=== PATIENT | female | born 1950 | race African-American/Black ===

== ENCOUNTER 2017-04-14 03:34 | Emergency (ER) | payer MEDICARE, MEDICAID ==
[2017-04-14] MEDS ORDERED: Lidocaine 1% w/Epinephrine 1:200K 30 ML VIAL ONE (03:46)
[2017-04-14] MEDS ORDERED: Acetaminophen 500 MG TAB ONE (04:54)
[2017-04-14] MEDS ORDERED: Adacel (T-DAP) 0.5 ML VIAL ONE (04:54)
[2017-04-14] MEDS ORDERED: Bacitracin Zinc 1 Packet ONE (05:03)
--- NOTE | 2017-04-14 07:55 | RAD ---
3 VIEWS RIGHT FOOT: Date: 04/14/17 COMPARISON: None. HISTORY: Fell out of bed, right foot pain. FINDINGS: Three views of the right foot show no evidence of acute fracture or dislocation. Mild degenerative c hanges are seen in the great toe metatarsophalangeal joint. No soft tissue swelling is seen. IMPRESSION: No evidence of acute osseous abnormality. POS: [facility]
--- NOTE | 2017-04-14 08:09 | CT ---
PRELIMINARY REPORT/[facility]/EMERGENCY AFTER HOURS PROCEDURE: EXAM: CT Head Without Intravenous Contrast CLINICAL HISTORY: 66 years old, female; Injury or trauma; Fall; Initial encounter; Abrasion; Eye; Left; Patient HX: Er 8; F 66 presents to ed following fall out of bed. Pt states that she was sleeping when she rolled o ut of bed and hit her head and got a cut above her left eyebrow, bleeding was controlled. TECHNIQUE: Axial computed tomography images of the head/brain without intravenous contrast. COMPARISON: No relevant prior studies available. FINDINGS: Brain: There is no evidence for acute stroke or bleed. There are scattered foci of decreased attenuation in the periventricular and subcortical white matter, nonspecific, but most consistent with chronic sma ll vessel ischemic changes in patient of this age. There are benign, bilateral senescent basal gangl ion calcifications. Ventricles / cisterns / extra-axial spaces: There is no hydrocephalus, midline shift, or acute extra-axial fluid collection. There is no sulcal effacement. Sinuses: No findings of acute sinusitis or suspicious sinus mass. Bone: No acute fracture or displacement. Impression: Chronic changes without evidence for acute, intracranial pathology. Thank you for allowing us to participate in the care of your patient. Dictated and Authenticated by: Dheeraj Corbin MD 04/14/2017 4:31 AM Central Time ([place] \T\ Krish) FINAL REPORT CT BRAIN WITHOUT CONTRAST: I agree with the preliminary report given by Dr. Dheeraj Corbin of [facility]. Comparison is made with the exam of 03/02/17. No CT evidence of acute intracranial process is identified. POS: [facility]
== END 2017-04-14 05:09 | disposition home or self-care (01) ==
LOC: ERS 03:34
DX: S01.81XA Laceration without foreign body of other part of head, initial encounter (principal); E78.5 Hyperlipidemia, unspecified; I10 Essential (primary) hypertension; K21.9 Gastro-esophageal reflux disease without esophagitis; D64.9 Anemia, unspecified; M81.0 Age-related osteoporosis without current pathological fracture; Z79.899 Other long term (current) drug therapy; W06.XXXA Fall from bed, initial encounter
CPT/HCPCS: 12011; 70450; 90471; 90715

== ENCOUNTER 2017-04-28 14:03 | Emergency (ER) | payer MEDICARE, OTHER ==
[2017-04-28 14:23] LABS: #Eosinphils 0.1 thou/uL (0.0-0.7); #Lymphocytes 1.2 thou/uL (1.20-3.40); #Monocytes 0.3 thou/uL (0.11-0.59); #Neutrophils 3.2 thou/uL (1.40-6.50); %Basophils 0.7 % (0.0-1.0); %Eosinophils 1.3 % (0.0-10.0); %Lymphocytes 26.1 % (21.0-51.0); %Monocytes 5.4 % (0.0-10.0); Hematocrit 41.6 % (36.0-47.0); Mean Platelet Volume 8.8 fL (7.4-10.4); Red Blood Cell (RBC) Count 4.13 mill/uL (4.20-5.40); White Blood Cell (WBC) Count 4.8 thou/uL (4.8-10.8)
[2017-04-28] MEDS ORDERED: ISOVUE-370 76%-LOCM 1 ML ONE (14:31)
[2017-04-28 14:46] LABS: ALT (SGPT) 48 U/L (8-55); AST (SGOT) 86 U/L (5-34); Alkaline Phosphatase 142 U/L (40-150); Anion Gap 11 mmol/L (10-20); BUN (Urea Nitrogen) 16 mg/dL (9.8-20.1); Bilirubin, Total 1.3 mg/dL (0.2-1.2); Calc. Creatinine Clearance 0 mL/min (70-130); Calcium 9.5 mg/dL (7.8-10.44); Carbon Dioxide 27 mmol/L (23-31); Chloride 100 mmol/L (98-107); Estimated GFR-MDRD 62; Globulin 4.2 g/dL (2.4-3.5); Protein, Total 7.9 g/dL (6.0-8.3)
[2017-04-28 14:53] LABS: PTT 32.5 SEC (22.9-36.1); Prothrombin Time 14.6 SEC (12.0-14.7)
[2017-04-28 15:05] LABS: Magnesium 2.1 mg/dL (1.6-2.6)
[2017-04-28 15:10] LABS: Troponin I 0.013 ng/mL (< 0.028)
[2017-04-28 15:11] LABS: Bilirubin Negative (Negative); Blood, Urine Negative (Negative); Glucose, Urine (Dipstick) 250 mg/dL (Negative); Ketone, Urine Negative (Negative); Nitrite Negative (Negative); Protein, Urine (Dipstick) Negative (Neg-Trace)
--- NOTE | 2017-04-28 15:28 | CT ---
CT BRAIN: HISTORY: Weakness, dizziness. DATE: 04/28/17. COMPARISON: Comparison is made to previous exam from 04/14/17. FINDINGS: Noncontrast-enhanced CT images of the brain demonstrate the brain to be unremarkable. No evidence o f intracranial masses, hemorrhages, strokes, or contusions seen. Ventricles are of normal size. IMPRESSION: Normal CT brain. No significant interval change is seen since the previous exam from approximately 14 days earlier. POS: [facility]
[2017-04-28] MEDS ORDERED: Ondansetron HCl/PF 4 MG/2 ML Vial ONE (15:45)
--- NOTE | 2017-04-28 16:00 | CT ---
CONTRAST ENHANCED CT IMAGES ABDOMEN AND PELVIS: 04/28/17 HISTORY: Dizziness, weakness, abdominal pain. Contrast enhanced CT images of the abdomen and pelvis is obtained. Unfortunately oral contrast was n ot given. Without oral contrast, there is decreased sensitivity for detection of abdominal pathology . The lung bases are unremarkable. Nodularity and cirrhotic changes of the liver again seen. Extensive gastric surgical christopher are seen. Left upper quadrant splenic varicosities seen. There appears to be some thickening of some of the small bowel loops concerning for possible enteritis. It is difficu lt to rule out GI pathology without benefit of oral contrast. A large amount of stool was seen in the colon. This patient appears to have extensive amounts of ret ained stool. No definite evidence of periaortic lymphadenopathy seen. IMPRESSION: 1. Suboptimal exam due to the fact that oral contrast was not given. 2. Distal esophageal thickening. 3. Perisplenic left upper quadrant varicosities. 4. Hepatic nodularity and possible changes of cirrhosis. POS: [facility]
== END 2017-04-28 18:12 | disposition short-term general hospital (02) ==
LOC: ERS 14:03
DX: K85.90 Acute pancreatitis without necrosis or infection, unspecified (principal); K74.60 Unspecified cirrhosis of liver; D86.0 Sarcoidosis of lung; E78.5 Hyperlipidemia, unspecified; I10 Essential (primary) hypertension; K21.9 Gastro-esophageal reflux disease without esophagitis; Z79.899 Other long term (current) drug therapy
CPT/HCPCS: 36415; 51701; 70450; 74177; 80053; 81003; 82553; 83605; 83690; 83735; 84484; 85025; 85610; 85730; 87040; 87086; 93005; 96361; 96374; J2405

== ENCOUNTER 2017-06-02 21:11 | Emergency (ER) | payer MEDICARE, MEDICAID ==
[~2017-06-02 21:11] MED LIST: ISOVUE-370 76%-LOCM 1 ML ONE
[2017-06-02 21:55] LABS: #Basophils 0.1 thou/uL (0.0-0.2); #Eosinphils 0.1 thou/uL (0.0-0.7); #Monocytes 0.4 thou/uL (0.11-0.59); #Neutrophils 3.3 thou/uL (1.40-6.50); %Basophils 1.2 % (0.0-1.0); %Eosinophils 2.1 % (0.0-10.0); %Lymphocytes 33.8 % (21.0-51.0); %Monocytes 6.4 % (0.0-10.0); Hematocrit 41.1 % (36.0-47.0); Mean Platelet Volume 9.3 fL (7.4-10.4); Red Blood Cell (RBC) Count 4.15 mill/uL (4.20-5.40); White Blood Cell (WBC) Count 5.8 thou/uL (4.8-10.8)
[2017-06-02 22:01] LABS: PTT 29.3 SEC (22.9-36.1)
[2017-06-02 22:02] LABS: ALT (SGPT) 38 U/L (8-55); AST (SGOT) 83 U/L (5-34); Alkaline Phosphatase 144 U/L (40-150); Anion Gap 16 mmol/L (10-20); BUN (Urea Nitrogen) 22 mg/dL (9.8-20.1); Bilirubin, Total 1.5 mg/dL (0.2-1.2); Calc. Creatinine Clearance 0 mL/min (70-130); Calcium 9.5 mg/dL (7.8-10.44); Carbon Dioxide 30 mmol/L (23-31); Chloride 91 mmol/L (98-107); Estimated GFR-MDRD 60; Globulin 3.9 g/dL (2.4-3.5); Lipase 138 U/L (8-78); Protein, Total 7.8 g/dL (6.0-8.3)
[2017-06-02 22:31] LABS: Bilirubin Negative (Negative); Blood, Urine Negative (Negative); Glucose, Urine (Dipstick) Negative (Negative); Ketone, Urine Negative (Negative); Nitrite Negative (Negative); Protein, Urine (Dipstick) Negative (Neg-Trace)
--- NOTE | 2017-06-02 22:34 | CT ---
CT ABDOMEN AND PELVIS WITH IV CONTRAST 06/02/17 HISTORY: Abdominal pain. Bloating. COMPARISON: 04/28/17. FINDINGS: Emphysematous changes at the lung bases are again demonstrated. There is a large nodular contour of t he liver and abdominal varices are similar in appearance to the previous exam. Cyst arising from the cortex of the left kidney is stable. There is calcification in the arterial structures. Urinary bladd er is incompletely distended. Lack of oral contrast limits evaluation of the bowel. There is no evidence of obstruction. Large amou nt of stool is present throughout the colon. Postoperative changes of the stomach and bowel are again demonstrated. IMPRESSION: 1. Abnormal appearance of the liver and abdominal varices appear stable. 2. Constipation. 3. Atherosclerosis. 4. Postoperative changes of the abdomen appears stable. POS: [facility]
[2017-06-02] MEDS ORDERED: Ondansetron HCl/PF 4 MG/2 ML Vial ONE (23:11)
[2017-06-02] MEDS ORDERED: Fentanyl 100 MCG/2 ML VIAL ONE (23:12)
== END 2017-06-03 00:19 | disposition home or self-care (01) ==
LOC: ERS 21:11
DX: R11.2 Nausea with vomiting, unspecified (principal); R10.13 Epigastric pain; E78.5 Hyperlipidemia, unspecified; I10 Essential (primary) hypertension; K21.9 Gastro-esophageal reflux disease without esophagitis; D64.9 Anemia, unspecified
CPT/HCPCS: 36415; 74177; 80053; 81003; 82274; 83690; 85025; 85610; 85730; 86850; 86900; 86901; 93005; 96361; 96374; 96375; J2405; J3010

== ENCOUNTER → 2017-06-07 | Day surgery (SDC) | payer MEDICARE, MEDICAID ==
[2017-06-06 10:51] VITALS: BMI 24.7
[~2017-06-07] MED LIST changes: -ISOVUE-370 76%-LOCM 1 ML ONE; +Lidocaine 1% PF 5 ML VIAL ONE; +Propofol 200 MG/20 ML VIAL ONE
--- NOTE | 2017-06-07 16:39 | OP ---
PREOPERATIVE DIAGNOSES: 1. History of cirrhosis and varices. 2. Chronic nausea. DESCRIPTION OF PROCEDURE: After informed consent was obtained, the patient was placed in the left la teral decubitus position. Anesthesia was administered per the Anesthesia Department. Forward-viewin g endoscope was inserted into the esophagus under direct visualization with ease and passed to the je junum with ease. The jejunum was normal. No abnormalities noted. The gastric pouch was normal. Th ere did seem to be some slight narrowing in transition between gastric pouch and jejunum. A 15 mm ba lloon was put across the area and inflated for 1 minute, deflated, and removed. No post-dilatation c hanges were noted. No ulcers are seen, grade II esophageal varices were noted without stigmata of re cent hemorrhage. No banding was performed. ASSESSMENT: 1. Grade II esophageal varices without stigmata of recent hemorrhage. 2. Status post gastric bypass. 3. Slight anastomotic narrowing - no change with balloon dilatation to 15 mm. RECOMMENDATIONS: 1. Continue Zofran. 2. Continue lactulose.
== END ==
LOC: SDC 11:28
PROVIDERS: ATTEND Internal Medicine Gastroenterology
PROC: 0D798ZZ Dilation of Duodenum, Via Natural or Artificial Opening Endoscopic (ICD-10-PCS; principal; 2017-06-07)
DX: I85.00 Esophageal varices without bleeding (principal); D86.89 Sarcoidosis of other sites; I10 Essential (primary) hypertension; K21.9 Gastro-esophageal reflux disease without esophagitis; D64.9 Anemia, unspecified; M81.0 Age-related osteoporosis without current pathological fracture; H40.9 Unspecified glaucoma; K92.89 Other specified diseases of the digestive system; Z79.899 Other long term (current) drug therapy; Z88.5 Allergy status to narcotic agent; Z98.84 Bariatric surgery status; Z90.49 Acquired absence of other specified parts of digestive tract; Z98.890 Other specified postprocedural states
CPT/HCPCS: 36415; 84132; J2001; J2704

== ENCOUNTER 2017-06-20 11:02 | Emergency (ER) | payer MEDICARE, MEDICAID ==
[2017-06-20 11:33] LABS: #Lymphocytes 0.5 thou/uL (1.20-3.40); #Monocytes 0.3 thou/uL (0.11-0.59); #Neutrophils 1.9 thou/uL (1.40-6.50); %Basophils 1.1 % (0.0-1.0); %Eosinophils 1.5 % (0.0-10.0); %Lymphocytes 17.9 % (21.0-51.0); %Monocytes 10.8 % (0.0-10.0); Hematocrit 36.5 % (36.0-47.0); Mean Platelet Volume 8.2 fL (7.4-10.4); Red Blood Cell (RBC) Count 3.63 mill/uL (4.20-5.40); White Blood Cell (WBC) Count 2.8 thou/uL (4.8-10.8)
[2017-06-20 11:47] LABS: ALT (SGPT) 46 U/L (8-55); AST (SGOT) 82 U/L (5-34); Alkaline Phosphatase 115 U/L (40-150); Anion Gap 6 mmol/L (10-20); BUN (Urea Nitrogen) 12 mg/dL (9.8-20.1); Bilirubin, Total 1.6 mg/dL (0.2-1.2); Calc. Creatinine Clearance 0 mL/min (70-130); Calcium 8.8 mg/dL (7.8-10.44); Carbon Dioxide 29 mmol/L (23-31); Chloride 105 mmol/L (98-107); Estimated GFR-MDRD 83; Globulin 3.7 g/dL (2.4-3.5); Lipase 118 U/L (8-78); Protein, Total 7.1 g/dL (6.0-8.3)
[2017-06-20 12:16] LABS: Bilirubin Negative (Negative); Blood, Urine Negative (Negative); Glucose, Urine (Dipstick) Negative (Negative); Ketone, Urine Negative (Negative); Nitrite Negative (Negative); Protein, Urine (Dipstick) Negative (Neg-Trace)
[2017-06-20] MEDS ORDERED: Pantoprazole 40 MG VIAL ONE (13:17)
[2017-06-20] MEDS ORDERED: Mag-Al 1200 mg/1200 mg/30 ML UDCUP ONE (13:18)
[2017-06-20] MEDS ORDERED: Lidocaine Viscous Sol 2% 15 ml UD Cup ONE (13:18)
[2017-06-20 13:35] LABS: Troponin I 0.012 ng/mL (< 0.028)
--- NOTE | 2017-06-20 13:49 | RAD ---
PORTABLE CHEST 1 VIEW: Date: 06/20/17 Time: 1222 hours HISTORY: Chest pain, abdominal pain, diarrhea, nausea, and weakness. FINDINGS/IMPRESSION: Comparison made with exam of 11/19/16. The heart size is borderline. The aorta is tortuous. Parenchymal markings are again seen. No lobar co nsolidation, pneumothorax, pedro pulmonary edema, or large effusions are identified. There are postop changes in the upper abdomen. POS: [facility]
[2017-06-20] MEDS ORDERED: ISOVUE-370 76%-LOCM 1 ML ONE (13:56)
--- NOTE | 2017-06-20 15:11 | CT ---
CT ABDOMEN AND PELVIS WITH IV CONTRAST: Date: 06/20/17 HISTORY: Abdominal pain, nausea, diarrhea, and weakness. Epigastric pain. FINDINGS: Comparison made with exam of 06/02/17. Emphysematous changes in the lung bases are again seen. There is thickening of the distal esophageal wall. Nodularity and heterogeneity of the liver is redemonstrated, indicating cirrhosis. Low density lesion in the spleen is stable. Abdominal varices are again seen. Left renal cyst is stable. A small amount of perihepatic fluid has developed. No free air is seen. There are vascular calcifications wit hout evidence of aneurysmal dilatation of the abdominal aorta. Changes of cholecystectomy are again noted. Uterus is present. Postop changes in the stomach and jeff l are again seen. Evaluation of bowel loops is suboptimal due to absence of oral contrast. Tiny cysts in the right kidney are again seen. Pancreas and adrenal glands are unremarkable. There are degenera tive changes in the spine. IMPRESSION: Small amount of perihepatic fluid, new since 06/02/17, otherwise stable exam. POS: [facility]
== END 2017-06-20 16:36 | disposition home or self-care (01) ==
LOC: ERS 11:02
DX: K74.60 Unspecified cirrhosis of liver (principal); K21.9 Gastro-esophageal reflux disease without esophagitis; E78.5 Hyperlipidemia, unspecified; I10 Essential (primary) hypertension; M81.0 Age-related osteoporosis without current pathological fracture; D64.9 Anemia, unspecified
CPT/HCPCS: 36415; 71010; 74177; 80053; 81003; 82550; 82553; 83690; 84484; 85025; 93005; 96361; 96374; C9113

== ENCOUNTER 2017-12-06 10:03 | Emergency (ER) | payer MEDICARE, OTHER ==
[2017-12-06 10:48] LABS: #Eosinphils 0.1 thou/uL (0.0-0.7); #Lymphocytes 1.3 thou/uL (1.20-3.40); #Monocytes 0.3 thou/uL (0.11-0.59); #Neutrophils 1.5 thou/uL (1.40-6.50); %Basophils 0.4 % (0.0-1.0); %Eosinophils 2.3 % (0.0-10.0); %Lymphocytes 41.5 % (21.0-51.0); %Monocytes 7.9 % (0.0-10.0); %Neutrophils 47.8 % (42.0-75.0); Hemoglobin 11.6 g/dL (12.0-16.0); Mean Corpuscular HGB CONC 32.7 g/dL (32.0-36.0); Mean Corpuscular Hemoglobin 32.1 pg (27.0-31.0); Mean Corpuscular Volume 98.2 fl (81.0-99.0); Mean Platelet Volume 8.8 fL (7.4-10.4); Platelet Count 93 thou/uL (130-400); RBC Distribution Width 12.4 % (11.5-14.5); Red Blood Cell (RBC) Count 3.62 mill/uL (4.20-5.40); White Blood Cell (WBC) Count 3.2 thou/uL (4.8-10.8)
[2017-12-06 10:58] LABS: ALT (SGPT) 39 U/L (8-55); AST (SGOT) 60 U/L (5-34); Albumin 3.4 g/dL (3.4-4.8); Alkaline Phosphatase 108 U/L (40-150); Anion Gap 12 mmol/L (10-20); BUN (Urea Nitrogen) 9 mg/dL (9.8-20.1); CK (CPK) 170 U/L (29-168); Calc. Creatinine Clearance 0 mL/min (70-130); Calcium 8.6 mg/dL (7.8-10.44); Carbon Dioxide 25 mmol/L (23-31); Chloride 103 mmol/L (98-107); Estimated GFR-MDRD 77; Globulin 3.5 g/dL (2.4-3.5); Glucose 82 mg/dL (80-115); Potassium 3.5 mmol/L (3.5-5.1); Protein, Total 6.9 g/dL (6.0-8.3); Sodium 136 mmol/L (136-145)
[2017-12-06 11:04] LABS: CKMB 1.4 ng/mL (0-6.6); Troponin I Less than 0.010 ng/mL (< 0.028)
--- NOTE | 2017-12-06 11:09 | RAD ---
CHEST 1 VIEW: COMPARISON: 06/20/17. HISTORY: Shortness of breath. FINDINGS: Enlarged cardiac silhouette. The pulmonary vessels are within normal limits. There are patchy inter stitial and alveolar opacities. Stable calcified granulomas in the right lung. No pneumothorax or o sseous abnormalities. IMPRESSION: Interstitial and alveolar opacities due to infiltrate. POS: [facility]
[2017-12-06] MEDS ORDERED: Azithromycin 250 MG TAB ONE (11:46)
[2017-12-06] MEDS ORDERED: cefTRIAXone\\ROCEPHIN 1 GM VIAL ONE (11:46)
== END 2017-12-06 16:07 | disposition short-term general hospital (02) ==
LOC: ERS 10:03
DX: J18.9 Pneumonia, unspecified organism (principal); E78.5 Hyperlipidemia, unspecified; I10 Essential (primary) hypertension; K21.9 Gastro-esophageal reflux disease without esophagitis; M81.0 Age-related osteoporosis without current pathological fracture; Z79.899 Other long term (current) drug therapy
CPT/HCPCS: 36415; 71045; 80053; 82550; 82553; 83605; 83880; 84484; 85025; 87040; 93005; 96365; J0696

== ENCOUNTER 2018-01-03 10:44 | Outpatient (CLI) | payer MEDICARE, MEDICAID ==
--- NOTE | 2018-01-03 11:54 | RAD ---
FRONTAL AND LATERAL CHEST: Date: 01-03-18 Comparison: 10-15-16 History: Dyspnea. FINDINGS: Multiple post-operative clips are seen in the upper abdomen. There is no pneumothorax, pleural fluid, focal consolidation or alveolar edema. Diffuse increased linear interstitial density is noted throughout both lungs with pulmonary hyperinfl ation, chronic stable findings. No focal consolidation or alveolar edema. IMPRESSION: Diffuse interstitial prominence and pulmonary hyperinflation, stable. No lobar consolidation or alveo lar edema. No acute findings. POS: [facility]
== END 2018-01-03 10:45 | disposition home or self-care (01) ==
LOC: RAD 10:44
PROVIDERS: ATTEND Internal Medicine Critical Care Medicine
DX: R06.00 Dyspnea, unspecified (principal); J98.4 Other disorders of lung
CPT/HCPCS: 71046

== ENCOUNTER 2018-02-24 12:20 | Emergency (ER) | payer MEDICARE, MEDICAID ==
[2018-02-24 13:26] LABS: #Eosinphils 0.1 thou/uL (0.0-0.7); #Lymphocytes 0.9 thou/uL (1.20-3.40); #Monocytes 0.2 thou/uL (0.11-0.59); #Neutrophils 2.1 thou/uL (1.40-6.50); %Basophils 1.3 % (0.0-1.0); %Eosinophils 1.7 % (0.0-10.0); %Lymphocytes 27.2 % (21.0-51.0); %Monocytes 6.7 % (0.0-10.0); Hemoglobin 12.2 g/dL (12.0-16.0); Mean Corpuscular Hemoglobin 32.2 pg (27.0-31.0); Mean Corpuscular Volume 97.5 fL (78.0-98.0); Mean Platelet Volume 8.5 fL (7.4-10.4); Platelet Count 107 thou/uL (130-400); RBC Distribution Width 12.9 % (11.5-14.5); Red Blood Cell (RBC) Count 3.79 mill/uL (4.20-5.40); White Blood Cell (WBC) Count 3.3 thou/uL (4.8-10.8)
[2018-02-24 13:58] LABS: ALT (SGPT) 55 U/L (8-55); AST (SGOT) 74 U/L (5-34); Albumin 3.8 g/dL (3.4-4.8); Alkaline Phosphatase 150 U/L (40-150); Anion Gap 9 mmol/L (10-20); BUN (Urea Nitrogen) 12 mg/dL (9.8-20.1); Bilirubin, Total 1.2 mg/dL (0.2-1.2); Calc. Creatinine Clearance 0 mL/min (70-130); Carbon Dioxide 29 mmol/L (23-31); Chloride 102 mmol/L (98-107); Estimated GFR-MDRD 73; Globulin 3.9 g/dL (2.4-3.5); Lipase 125 U/L (8-78); Potassium 3.7 mmol/L (3.5-5.1); Protein, Total 7.7 g/dL (6.0-8.3); Sodium 136 mmol/L (136-145)
[2018-02-24 14:11] LABS: Glucose 53 mg/dL (80-115)
[2018-02-24 15:33] LABS: Bilirubin Negative (Negative); Blood, Urine Negative (Negative); Clarity CLEAR (Clear); Glucose, Urine (Dipstick) Negative (Negative); Leukocyte Negative (Negative); Nitrite Negative (Negative); Protein, Urine (Dipstick) Negative (Neg-Trace); Specific Gravity, Urine 1.007 (1.002-1.036); pH, Urine 7.5 (5.0-9.0)
[2018-02-24] MEDS ORDERED: diphenhydrAMINE 25 MG CAP ONE (16:05)
== END 2018-02-24 16:07 | disposition home or self-care (01) ==
LOC: ERS 12:20
DX: E16.2 Hypoglycemia, unspecified (principal); E78.5 Hyperlipidemia, unspecified; I10 Essential (primary) hypertension; K21.9 Gastro-esophageal reflux disease without esophagitis; D64.9 Anemia, unspecified; M81.0 Age-related osteoporosis without current pathological fracture; Z79.899 Other long term (current) drug therapy
CPT/HCPCS: 36415; 36416; 80053; 81003; 83690; 85025; 93005

== ENCOUNTER 2018-04-25 09:01 | Observation (INO) | payer MEDICARE, OTHER ==
[2018-04-25] MEDS ORDERED: ISOVUE-370 76%-LOCM 1 ML ONE (09:46)
[2018-04-25 09:53] LABS: ALT (SGPT) 39 U/L (8-55); AST (SGOT) 49 U/L (5-34); Albumin 3.5 g/dL (3.4-4.8); Alkaline Phosphatase 108 U/L (40-150); Anion Gap 12 mmol/L (10-20); BUN (Urea Nitrogen) 12 mg/dL (9.8-20.1); Bilirubin, Total 1.6 mg/dL (0.2-1.2); Calc. Creatinine Clearance 0 mL/min (70-130); Calcium 9.2 mg/dL (7.8-10.44); Carbon Dioxide 24 mmol/L (23-31); Chloride 106 mmol/L (98-107); Estimated GFR-MDRD 68; Globulin 3.4 g/dL (2.4-3.5); Glucose 91 mg/dL (80-115); Potassium 3.2 mmol/L (3.5-5.1); Protein, Total 6.9 g/dL (6.0-8.3); Sodium 139 mmol/L (136-145)
[2018-04-25 09:55] LABS: #Eosinphils 0.1 thou/uL (0.0-0.7); #Lymphocytes 0.9 thou/uL (1.20-3.40); #Monocytes 0.3 thou/uL (0.11-0.59); #Neutrophils 2.3 thou/uL (1.40-6.50); %Basophils 1.3 % (0.0-1.0); %Eosinophils 2.3 % (0.0-10.0); %Lymphocytes 25.4 % (21.0-51.0); %Monocytes 7.3 % (0.0-10.0); %Neutrophils 63.7 % (42.0-75.0); Hemoglobin 12.1 g/dL (12.0-16.0); Mean Corpuscular HGB CONC 32.1 g/dL (32.0-36.0); Mean Corpuscular Hemoglobin 31.2 pg (27.0-31.0); Mean Corpuscular Volume 97.3 fL (78.0-98.0); Mean Platelet Volume 9.3 fL (7.4-10.4); PLT Morphology Comment Appears Decreased; Platelet Count 105 thou/uL (130-400); RBC Distribution Width 13.1 % (11.5-14.5); Red Blood Cell (RBC) Count 3.87 mill/uL (4.20-5.40); White Blood Cell (WBC) Count 3.5 thou/uL (4.8-10.8)
[2018-04-25 10:01] LABS: CKMB 1.7 ng/mL (0-6.6); Troponin I Less than 0.010 ng/mL (< 0.028)
--- NOTE | 2018-04-25 10:06 | RAD ---
PORTABLE CHEST: Indication: Chest pain Comparison: 12-06-17 FINDINGS: Heart size upper normal. There is vascular congestion. Interstitial prominence is seen similar to tam or exam suggesting interstitial edema. There are numerous nodular calcifications overlying both breas ts suggesting soft tissue breast calcifications. No effusion. IMPRESSION: Mild cardiomegaly with vascular and interstitial congestion suggesting interstitial edema. Nodular ca lcifications are seen overlying both breasts, similar to the prior study. POS: [facility]
--- NOTE | 2018-04-25 11:22 | CT ---
CT ANGIOGRAM THORAX WITH IV CONTRAST AND 3D RECONSTRUCTIONS: 04/25/2018 HISTORY: Dyspnea. Chest pain and shortness of breath with onset of symptoms this morning, while walking. COMPARISON: 11/09/2013 FINDINGS: The ascending thoracic aorta is mildly ectatic, measuring 4 cm x 3.8 cm. The thoracic aorta is other aldridge normal in caliber without evidence of an aortic dissection. Vascular calcifications are seen in the thoracic aorta, as well as involving the coronary arteries. The heart is mildly enlarged. No filling defects are seen in the pulmonary arteries to suggest a pulmonary embolus. There appears to be a hiatal hernia with post surgical changes of the stomach. There is suggestion of mild thicken ing involving the most distal esophagus. Findings have not significantly changed from a study in 201 4. There is interstitial thickening within the lungs bilaterally, likely related to chronic interstitial fibrotic lung changes, which have progressed from the prior study in 2013. A superimposed acute int erstitial process is a possibility. No focal consolidation or pleural fluid is seen. Again noted are changes of cirrhosis, a lobulated contour of the liver, as well as heterogeneity. Mu ltiple surgical clips are seen in the upper abdomen, predominantly in the epigastric region and right upper quadrant. There are varices seen adjacent to the spleen, in the left upper quadrant. A low density lesion is again partially imaged within the superior pole, right kidney, which is diffi cult to characterize but, statistically, likely represents a cyst. Radiopaque tubing is seen within the left upper abdomen, including adjacent to the stomach. This was present on prior exam. There brandt s been no other interval change. IMPRESSION: 1. No CT evidence of a pulmonary embolus. 2. Cardiomegaly. 3. Increased interstitial opacities throughout the lungs bilaterally, which have progressed from the prior study. Findings may be related to progression in chronic interstitial fibrotic lung changes, but a superimposed more acute interstitial process/infectious process cannot be excluded. There is n o consolidation present or pleural effusion identified. 4. Vascular calcifications. 5. Cirrhosis with varices in the upper abdomen. 6. Post surgical changes of the stomach with a hiatal hernia. There is suggested thickening of the esophagus, but some of this apparent thickening may be related to the hiatal hernia. Findings are si milar to the prior examination. 7. Post surgical changes of the upper abdomen. 8. Left renal cyst. 9. Mild prominence of the thyroid gland, but this is stable from the prior examination. POS: [facility]
[2018-04-25] MEDS ORDERED: Potassium Chloride 20 MEQ TAB ONE (11:26)
[2018-04-25] MEDS ORDERED: Furosemide 40 MG/4 ML VIAL ONE (11:27)
[2018-04-25] MEDS ORDERED: Zolpidem Tartrate 5 MG TAB PO PRN (12:30)
[2018-04-25] MEDS ORDERED: Ondansetron ODT 4 MG TAB PO PRN (12:30)
--- NOTE | 2018-04-25 12:34 | HP ---
PRIMARY CARE PROVIDER: Ignacio Bahena M.D. Referred to [facility] by [facility]. HISTORY OF PRESENT ILLNESS: Patient started having shortness of breath with chest tightness this mor cherelle. manager of distribution were called. It is reported she had a pulse rate of 150 in the ambulance. She improved dramatically after arriving to the emergency room. She had no sweats, nausea or radiation. Her init ial EKG revealed atrial fibrillation with rapid ventricular response. Followup showed normal sinus r hythm at about 70. She has a history of atrial fibrillation. PAST MEDICAL HISTORY: Paroxysmal atrial fibrillation, lung and liver sarcoidosis, hepatitis C with c irrhosis of the liver, dyslipidemia, hypertension, osteoporosis. PAST SURGICAL HISTORY: Gastric banding or bypass, cholecystectomy. ALLERGIES: CODEINE. MEDICATIONS: Flecainide 50 mg once a day, although the bottle says twice a day, losartan 25 mg a day , omeprazole 40 mg twice a day, triamterene/hydrochlorothiazide 37.5/25, ferrous sulfate 325 mg twice a day. SOCIAL HISTORY: Single. No alcohol, tobacco or illicit drug use. CODE STATUS: Full, confirmed with daughter. FAMILY HISTORY: Significant for coronary artery disease in her family. REVIEW OF SYSTEMS: GENERAL: No headaches, dizziness, or fainting. EYES: Blurred vision occasionally. No double vision, flashing lights. ENT: She has a little sore throat occasionally. No ear pain or drainage. No nasal bleeding. CARDIAC: See present illness. No orthopnea or paroxysmal nocturnal dyspnea. RESPIRATIONS: Occasional cough, some occasional wheezing, uses an inhaler. GASTROINTESTINAL: She had diarrhea yesterday. No melena or blood. No abdominal pain, constipation, nausea, or vomiting. GENITOURINARY: No hematuria or dysuria. MUSCULOSKELETAL: No pain or swelling in her legs. NEUROLOGIC: No strokes, seizures, or focal weakness. PSYCHIATRIC: No anxiety or depression. SKIN: No bruising, bleeding, or rash. HEME/LYMPH: No tender or swollen lymph nodes in axilla, inguinal, or cervical area. PHYSICAL EXAMINATION: VITAL SIGNS: Initially 121/85 with 126 pulse, now 113/77 with a 77 pulse, temperature 98.2. HEENT: Pupils equal, round, reactive to light. Extraocular movements are intact. Sclerae white. T ympanic membranes clear. Nose is clear. Oral mucous membranes are wet. Dental hygiene is fair. NECK: No jugular venous distention, adenopathy, thyromegaly. CHEST: Clear to percussion. Has some scattered fine rales. HEART: Regular rate and rhythm. No murmurs or gallops. ABDOMEN: Soft, bowel sounds normal. No hepatosplenomegaly, no mass, no rebound, no bruits. EXTREMITIES: Reveal no cyanosis, clubbing or edema. PULSES: Carotid, radial, femoral, and dorsalis pedis pulses intact. SKIN: Warm and dry without bruises or rash. HEME/LYMPH: No tender or swollen lymph nodes in axilla, inguinal or cervical area. NEUROLOGICAL: Cranial nerves II-XII are intact. Deep tendon reflexes symmetric. LABORATORY AND X-RAY FINDINGS: EKG first had an atrial fibrillation at about [address]-T abnormality, second had a regular sinus rhythm at [address]-T abnormality. Both reviewed by me. Chest x-ray shows no cardiomegaly, no evidence of CHF, but she has reticular nodular infiltrates dif fusely consistent with her diagnosis of sarcoidosis, reviewed by me. D-dimer 0.85. The patient had a CT for pulmonary emboli that was negative. Comp metabolic profile revealed bilirubin 1.6, AST 49, potassium 3.2, otherwise normal. BNP was minimal at 205. White count 3.5, hemoglobin 12.1, platelet count 105. ADMITTING DIAGNOSES: 1. Atrial fibrillation with rapid ventricular response, now in regular sinus rhythm. 2. Sarcoidosis of the lung. 3. Hepatitis C with cirrhosis. 4. Hypertension. 5. Dyslipidemia. 6. Chest pain. PLAN: We will place in hospital on routine medicines. We will monitor troponins x3. We will reques t Cardiology to see her about the breakthrough atrial fibrillation on the flecainide.
[2018-04-25 12:41] VITALS: BMI 26.6
[2018-04-25] MEDS ORDERED: PROVENTIL INHALER 6.7 G (200 INHALATIONS) INH PRN (13:33)
[2018-04-25 13:37] LABS: Troponin I Less than 0.010 ng/mL (< 0.028)
[2018-04-25] MEDS: Acetaminophen 325 MG TAB PO PRN (15:39)
[2018-04-25 16:32] LABS: Troponin I 0.015 ng/mL (< 0.028)
[2018-04-25] MEDS: Ferrous Sulfate 325 MG TAB PO SCH (20:12)
[2018-04-25] MEDS: Flecainide 50 MG TAB PO SCH (20:12)
[2018-04-25] MEDS ORDERED: Flecainide 50 MG TAB PO SCH ×2 (21:00)
[2018-04-25] MEDS: Latanoprost 0.005% Ophth Soln 2.5 ml Bottle EA EYE SCH (22:09)
--- NOTE | 2018-04-26 02:19 | CON ---
DATE OF CONSULTATION: 04/25/2018 HISTORY: Jacob Cornelius is a 67-year-old black female with history of paroxysmal atrial fibrillation. She has been seen intermittently by Dr. 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 In 2011, she did undergo cardiac catheterization, which revealed mild calcification of the coronary arteries, but otherwise unremarkable. She also had Cardiolite stress test in the hospital in 11/2016, which revealed a normal stress only scan. Today, she had onset of chest pressure and shortness of breath. She came to the emergency room and was found to be in atrial fibrillation with fast ventricular response. In the emergency room, she was given Lasix 40 mg IV, as well as potassium 40 mEq and sodium chloride 500 mg IV. Apparently, she spontaneously converted back to sinus rhythm. PAST MEDICAL HISTORY: Paroxysmal atrial fibrillation, cirrhosis, hypertension, esophageal varices, diabetes, sarcoidosis of the lung and liver, hepatitis C, dyslipidemia. OPERATIONS: Gastric banding and cholecystectomy. ALLERGIES: CODEINE. HOME MEDICATIONS: Albuterol 2 puffs q.6 hours, ferrous sulfate 325 b.i.d., flecainide 50 mg b.i.d., furosemide 20 mg q.a.m., losartan 25 daily, omeprazole 40 mg daily, KCl 10 mEq daily, tramadol 50 mg q.6 hours p.r.n., triamterene and hydrochlorothiazide daily. FAMILY HISTORY: Positive for coronary artery disease. SOCIAL HISTORY: She does not smoke. REVIEW OF SYSTEMS: Twelve-point review of systems is otherwise unremarkable. PHYSICAL EXAMINATION: VITAL SIGNS: Blood pressure 110/80, pulse 58. HEENT: PERRL. NECK: Supple. CHEST: Clear. CARDIAC: S1, S2 normal without any S3 or S4. There is a 2/6 systolic murmur along the left sternal border. ABDOMEN: Normal bowel sounds without tenderness, organomegaly. EXTREMITIES: Trace pretibial edema. NEUROLOGIC: Grossly intact. SKIN: Warm and dry. LABORATORY DATA: EKG on admission revealed atrial fibrillation with rate of 128 per minute. Subsequent EKG reveals normal sinus rhythm with poor R-wave progression. Cardiac enzymes were unremarkable. Hemoglobin 12.1, hematocrit 37.3, white count 3500, platelets 105,000. D-dimer is 0.85. Sodium 139, potassium 3.2, chloride 106, carbon dioxide 24, BUN 12, creatinine 0.98. BNP is 205.5. Chest CTA revealed no evidence of pulmonary embolism. There is cirrhosis with varices in the upper abdomen. IMPRESSION: 1. Paroxysmal atrial fibrillation with another such episode. She did have fairly normal coronary arteries in 2011 and negative adenosine Cardiolite in 2016. Her cardiac enzymes also have been negative during this admission despite 2 hours of chest pressure. 2. Sarcoidosis of the lung. 3. Hepatitis C with cirrhosis. 4. Esophageal varices. 5. Hypertension. 6. Dyslipidemia. PLAN: The patient is a poor anticoagulation candidate with known esophageal varices. She currently is on flecainide 50 mg b.i.d. and the dose will be increased to 75 mg b.i.d. She does have a systolic murmur and echocardiogram will be performed. MTDD
[2018-04-26 04:49] LABS: #Eosinphils 0.1 thou/uL (0.0-0.7); #Lymphocytes 1.1 thou/uL (1.20-3.40); #Monocytes 0.3 thou/uL (0.11-0.59); #Neutrophils 1.3 thou/uL (1.40-6.50); %Basophils 1.4 % (0.0-1.0); %Eosinophils 3.2 % (0.0-10.0); %Lymphocytes 38.9 % (21.0-51.0); %Neutrophils 46.6 % (42.0-75.0); Hemoglobin 10.1 g/dL (12.0-16.0); Mean Corpuscular Hemoglobin 31.9 pg (27.0-31.0); Mean Corpuscular Volume 96.8 fL (78.0-98.0); Mean Platelet Volume 10.9 fL (7.4-10.4); Platelet Count 101 thou/uL (130-400); RBC Distribution Width 13.2 % (11.5-14.5); Red Blood Cell (RBC) Count 3.15 mill/uL (4.20-5.40); White Blood Cell (WBC) Count 2.8 thou/uL (4.8-10.8)
[2018-04-26 04:55] LABS: Anion Gap 10 mmol/L (10-20); BUN (Urea Nitrogen) 15 mg/dL (9.8-20.1); Calc. Creatinine Clearance 77 mL/min (70-130); Calcium 8.5 mg/dL (7.8-10.44); Carbon Dioxide 25 mmol/L (23-31); Chloride 108 mmol/L (98-107); Estimated GFR-MDRD 87; Glucose 77 mg/dL (80-115); Potassium 3.5 mmol/L (3.5-5.1); Sodium 139 mmol/L (136-145)
[2018-04-26] MEDS ORDERED: Prevnar 13-Val Conj/PF 0.5 ML SYRINGE IM ONE (09:00)
[2018-04-26] MEDS ORDERED: Flecainide 50 MG TAB PO SCH (09:00)
[2018-04-26] MEDS: Potassium Chloride 10 MEQ TAB PO SCH (09:40)
[2018-04-26] MEDS: Enoxaparin Sodium 40 MG/0.4 ML SYRINGE SC SCH (09:40)
[2018-04-26] MEDS: Ferrous Sulfate 325 MG TAB PO SCH ×2 (09:41→20:46)
[2018-04-26] MEDS: Furosemide 20 MG TAB PO SCH (09:41)
[2018-04-26] MEDS: Triamterene/Hydrochlorothiazide 37.5 mg/25 mg Tablet PO SCH (09:41)
[2018-04-26] MEDS: Flecainide 50 MG TAB PO SCH (09:42)
[2018-04-26 10:00] LABS: Iron Binding Capacity, Total 201 mcg/dL (265-497)
[2018-04-26 10:01] LABS: Iron 100 ug/dL (50-170)
[2018-04-26] MEDS ORDERED: Potassium Chloride 20 MEQ TAB PO SCH ×2 (11:30→18:00)
[2018-04-26] MEDS ORDERED: Furosemide 20 MG/2 ML VIAL SLOW IVP SCH (13:00)
[2018-04-26] MEDS ORDERED: Losartan 25 MG TAB PO SCH (13:00)
--- NOTE | 2018-04-26 13:15 | PRG ---
DATE OF SERVICE: 04/26/2018 SUBJECTIVE: Ms. Cornelius is feeling much better today. Yesterday she was admitted to the hospital with atrial fibrillation with an increased ventricular response associated with congestive heart failure. Today, she is feeling better. She is not short of breath now. PHYSICAL EXAMINATION: VITAL SIGNS: Blood pressure 143/62, pulse 58 regular. LUNGS: Clear. CARDIAC: Normal S1, normal S2. There is a 3/6 holosystolic murmur along the left lower sternal bord er radiating to the apex. ABDOMEN: Soft, nontender. PERTINENT LABORATORY: Troponin levels were negative. Potassium 3.5. Iron levels 100. Ferritin lev el is pending. Hemoglobin 10.1. Echocardiogram showed normal left ventricular function, moderate to severe tricuspid insufficiency wi th elevated pulmonary artery pressure. ASSESSMENT: 1. Congestive heart failure, diastolic, acute on chronic associated with atrial fibrillation with a rapid rate. 2. Previous catheterization showing no obstructive coronary disease. Stress test done in 2017 showi ng no ischemia per Dr. Lyman's notes, that was actually done in 11/2016. PLAN: 1. In view of congestive heart failure she needs to be off flecainide. 2. We will change to Multaq. 3. Continue diuresis. 4. Increase angiotensin receptor placido. 5. The pulmonary artery hypertension is probably related to diastolic heart failure, get her off of flecainide and put her on Multaq, increase angiotensin receptor placido.
--- NOTE | 2018-04-26 14:29 | PDOC.PN ---
- Subjective Encounter Start Date: 04/26/18 Encounter Start Time: 13:00 Subjective: Follow up for Afib, dyspnea and chest pain - Objective Resuscitation Status: Resuscitation Status FULL:Full Resuscitation MAR Reviewed: Yes Vital Signs & Weight: Vital Signs (12 hours) Temp Pulse Resp BP BP Pulse Ox 04/26/18 12:10 97.6 F 63 18 135/64 100 04/26/18 07:34 99 F 58 L 22 H 143/62 H 100 04/26/18 04:40 55 L 18 121/58 L 96 Weight Weight 72.603 kg I&O: 04/25/18 04/26/18 04/27/18 06:59 06:59 06:59 Output Total 1400 Balance -1400 Result Diagrams: 04/26/18 03:34 04/26/18 03:34 <O'DavidAmber lockwood - Last Filed: 04/26/18 14:27> - Objective Resuscitation Status: Resuscitation Status FULL:Full Resuscitation Vital Signs & Weight: Vital Signs (12 hours) Temp Pulse Resp BP BP Pulse Ox 04/27/18 03:40 98.3 F 55 L 16 110/54 L 93 L 04/26/18 23:00 98.1 F 56 L 12 105/52 L 96 04/26/18 19:10 97.3 F L 61 13 126/60 98 Weight Weight 160 lb 1 oz I&O: 04/25/18 04/26/18 04/27/18 06:59 06:59 06:59 Intake Total 890 Output Total 1400 2100 Balance -1400 -1210 Result Diagrams: 04/26/18 03:34 04/27/18 03:31 <WaggonerNaknek C - Last Filed: 04/27/18 06:52> Phys Exam - Physical Examination HEENT: PERRLA Neck: no nodes, no JVD Respiratory: no rales, clear to auscultation bilateral Cardiovascular: RRR Gastrointestinal: soft, non-tender, positive bowel sounds Musculoskeletal: no edema, pulses present Neurological: normal sensation, moves all 4 limbs Lymphatic: no nodes Psychiatric: normal affect, A&O x 3 Skin: no rash, cap refill <2 seconds <O'DavidAmber lockwood - Last Filed: 04/26/18 14:27> Dx/Plan (1) Paroxysmal atrial fibrillation Code(s): I48.0 - PAROXYSMAL ATRIAL FIBRILLATION Status: Chronic Plan: Initally the flecanide was increased by Dr. Lyman and then dc'd today by Dr. Ramachandran and patient started on Multaq. Will continue to monitor. Echo performed Comment: Patient back in sinus rhythm. Restarting Flecanide which patient had run out of. (2) HTN (hypertension) Code(s): I10 - ESSENTIAL (PRIMARY) HYPERTENSION Status: Chronic Qualifiers: Hypertension type: essential hypertension Qualified Code(s): I10 - Essential (primary) hypertension Plan: Continue medications and will monitor (3) Cirrhosis of liver with ascites Code(s): K74.60 - UNSPECIFIED CIRRHOSIS OF LIVER Status: Chronic Qualifiers: Hepatic cirrhosis type: unspecified hepatic cirrhosis Qualified Code(s): K74.60 - Unspecified cirrhosis of liver Plan: Will follow labs - Plan cont current plan of care * . <Amber Pavon - Last Filed: 04/26/18 14:27> - Plan -: patient seen,examined. discussed POC [facility] KARELY Lowery. agree with plan * . <Javan Waggoner - Last Filed: 04/27/18 06:52>
--- NOTE | 2018-04-26 18:01 | PDOC.EVN ---
Event Note - Event Note Event Note: patient seen and examined, discussed plan of care with KARELY Segura
[2018-04-26] MEDS: Latanoprost 0.005% Ophth Soln 2.5 ml Bottle EA EYE SCH (20:47)
[2018-04-27] MEDS: Acetaminophen 325 MG TAB PO PRN (00:14)
[2018-04-27 05:15] LABS: Anion Gap 12 mmol/L (10-20); BUN (Urea Nitrogen) 14 mg/dL (9.8-20.1); Calc. Creatinine Clearance 72 mL/min (70-130); Calcium 8.6 mg/dL (7.8-10.44); Carbon Dioxide 25 mmol/L (23-31); Chloride 106 mmol/L (98-107); Estimated GFR-MDRD 81; Glucose 83 mg/dL (80-115); Potassium 3.9 mmol/L (3.5-5.1); Sodium 139 mmol/L (136-145)
[2018-04-27 07:56] VITALS: BP 137/67; TEMP 97.8
[2018-04-27] MEDS: Ferrous Sulfate 325 MG TAB PO SCH (08:47)
[2018-04-27] MEDS: Potassium Chloride 10 MEQ TAB PO SCH (08:47)
[2018-04-27] MEDS: Triamterene/Hydrochlorothiazide 37.5 mg/25 mg Tablet PO SCH (08:48)
[2018-04-27] MEDS: Furosemide 20 MG TAB PO SCH (08:48)
[2018-04-27] MEDS: Enoxaparin Sodium 40 MG/0.4 ML SYRINGE SC SCH (08:49)
[2018-04-27] MEDS ORDERED: Dronedarone HCl 400 MG TAB PO SCH (09:00)
[2018-04-27] MEDS ORDERED: Losartan 25 MG TAB PO SCH (09:00)
--- NOTE | 2018-04-27 09:26 | RAD ---
CHEST PA AND LATERAL: HISTORY: A 67-year-old female with a history of congestive heart failure. COMPARISON: 11/30/2015 as well as 04/25/2018. FINDINGS: Interstitial and reticulonodular parenchymal changes are noted throughout both lungs, somewhat more p rominent in the right suprahilar and right upper lobe region. No new confluent process. No signific ant pleural effusion. No cardiomegaly. IMPRESSION: Stable reticulonodular and interstitial parenchymal changes bilaterally from 04/25/2018. No new findi ngs. POS: [facility]
--- NOTE | 2018-04-27 09:57 | PDOC.PN ---
- Subjective Encounter Start Date: 04/27/18 Encounter Start Time: 09:30 Subjective: Follow up for atrial fib, chest pain - Objective Resuscitation Status: Resuscitation Status FULL:Full Resuscitation Vital Signs & Weight: Vital Signs (12 hours) Temp Pulse Resp BP BP Pulse Ox 04/27/18 07:36 97.8 F 56 L 12 137/67 98 04/27/18 03:40 98.3 F 55 L 16 110/54 L 93 L 04/26/18 23:00 98.1 F 56 L 12 105/52 L 96 Weight Weight 72.603 kg I&O: 04/26/18 04/27/18 04/28/18 06:59 06:59 06:59 Intake Total 890 Output Total 1400 2100 Balance -1400 -1210 Result Diagrams: 04/26/18 03:34 04/27/18 03:31 Phys Exam - Physical Examination HEENT: PERRLA, moist MMs Neck: no nodes Respiratory: clear to auscultation bilateral Cardiovascular: RRR Gastrointestinal: soft, non-tender Musculoskeletal: no edema, pulses present Neurological: non-focal, normal sensation, moves all 4 limbs Lymphatic: no nodes Psychiatric: normal affect, A&O x 3 Skin: no rash, normal turgor, cap refill <2 seconds Dx/Plan (1) Paroxysmal atrial fibrillation Code(s): I48.0 - PAROXYSMAL ATRIAL FIBRILLATION Status: Chronic Comment: Flecanide discontinued by Dr. Ramachandran and he started her on Multaq. No episodes of RVR today. Patient is feeling better. (2) HTN (hypertension) Code(s): I10 - ESSENTIAL (PRIMARY) HYPERTENSION Status: Chronic Qualifiers: Hypertension type: essential hypertension Qualified Code(s): I10 - Essential (primary) hypertension Plan: continue home meds (3) Cirrhosis of liver with ascites Code(s): K74.60 - UNSPECIFIED CIRRHOSIS OF LIVER Status: Chronic Qualifiers: Hepatic cirrhosis type: unspecified hepatic cirrhosis Qualified Code(s): K74.60 - Unspecified cirrhosis of liver Plan: monitor labs - Plan Will be discharged home today to follow up with PCP and Dr. Ramachandran * . - Discharge Day Minutes spent coordinating discharge of patient: 30
--- NOTE | 2018-04-27 10:48 | PRG ---
DATE OF SERVICE: 04/27/2018 SUBJECTIVE: Ms. Cornelius feels fine today. There is no chest pain or shortness of breath. PHYSICAL EXAMINATION: VITAL SIGNS: Blood pressure 137/67, pulse 56 and regular. LUNGS: Clear. CARDIAC: Normal S1, normal S2. ABDOMEN: Soft, nontender. EXTREMITIES: There is only very minimal edema. IMAGING DATA: Chest x-ray shows markedly improved pattern and congestive heart failure has resolved. Residual changes likely related to sarcoid. ASSESSMENT: 1. Congestive heart failure, diastolic, acute on chronic, probably exacerbated by flecainide as well as atrial fibrillation. 2. Paroxysmal atrial fibrillation. 3. History of recurrent iron deficiency anemia, poor candidate for long-term anticoagulation. PLAN: 1. Okay to be released home on Multaq 400 mg twice a day. 2. She takes iron, which she is tolerating well orally. 3. Losartan 100 mg a day. 4. Also on triamterene/hydrochlorothiazide. She is on potassium 10 mEq a day, continue that. 5. Follow up with us in the office in a couple of weeks with a base met first and EKG. She is in si nus rhythm currently.
--- NOTE | 2018-04-28 04:13 | DIS ---
DATE OF ADMISSION: 04/25/2018 DATE OF DISCHARGE: 04/27/2018 DISCHARGE DIAGNOSES: Atrial fibrillation, rate controlled; sarcoidosis of the lungs; hepatitis C wit h cirrhosis; hypertension; dyslipidemia; chest pain, which has been resolved; and anemia. 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 CODE STATUS: FULL. PROCEDURES: She had an echocardiogram with EF of 55-60%, [id number] tricuspid regurgitation. She also had a CTA of the chest in the ER, which was negative for PE. Chest x-ray was stable with no acute findings. Vital signs on discharge, temperature was 97.8, pulse 56, respirations 12, pulse ox 98% on room air, blood pressure was 137/67. See hospitalist note today for physical exam. HOSPITAL COURSE: On the day of admission, the patient started having shortness of breath with chest pain and presented to the ER. Initial EKG showed atrial fibrillation and RVR and then subsequent EKG s back to a normal sinus rhythm at 70. Patient has a history of atrial fibrillation. The patient wa s seen by Dr. Ramachandran, who discontinued the flecainide and added Multaq 400 mg b.i.d. He also increas ed her losartan to 100 mg from 25. Patient remained in a sinus rhythm and continued to do so and fel t much better today. She will be going home on Multaq and increase in losartan. ALLERGIES: Listed as CODEINE. DISCHARGE MEDICATIONS: Her home medications will be continued, tramadol 50 mg p.o. q.6 hours p.r.n., triamterene/hydrochlorothiazide 37.5/25 mg 1 p.o. daily, potassium chloride 10 mEq p.o. daily, Nexiu m 40 mg p.o. daily, losartan 100 mg p.o. daily, Xalatan ophthalmic solution 1 drop each eye at bedtim e, furosemide 20 mg p.o. daily, iron tablets, ferrous sulfate at 325 mg b.i.d., and albuterol sulfate , ProAir 2 puffs q.6 hours as needed, prescriptions were given for the increase of losartan 100 mg p. o. daily and Multaq 400 mg p.o. b.i.d. DISCHARGE CONDITION: Stable. DISPOSITION: Home. DIET: Will be heart healthy, low salt. FOLLOWUP: She is to follow up with Dr. Bahena within 1 week.
== END 2018-04-27 11:26 | disposition home or self-care (01) ==
LOC: ERS 09:01 → 2SW 11:48
PROVIDERS: ADMIT Internal Medicine; ATTEND Internal Medicine
DX: I11.0 Hypertensive heart disease with heart failure (principal); I50.33 Acute on chronic diastolic (congestive) heart failure; I48.0 Paroxysmal atrial fibrillation; E78.5 Hyperlipidemia, unspecified; M81.0 Age-related osteoporosis without current pathological fracture; D86.0 Sarcoidosis of lung; D86.89 Sarcoidosis of other sites; K74.60 Unspecified cirrhosis of liver; B19.20 Unspecified viral hepatitis C without hepatic coma; I25.10 Atherosclerotic heart disease of native coronary artery without angina pectoris; I25.84 Coronary atherosclerosis due to calcified coronary lesion; E11.9 Type 2 diabetes mellitus without complications; D50.9 Iron deficiency anemia, unspecified; Z79.899 Other long term (current) drug therapy; Z88.5 Allergy status to narcotic agent; Z98.84 Bariatric surgery status
CPT/HCPCS: 71045; 71046; 71275; 80048 ×2; 80053; 82553; 82728; 83540; 83550; 83880; 84484 ×2; 85025 ×2; 85379; 93005; 93306; 94640; 94760; 96361; 96372 ×2; 96374; 96376; 99285; G0378; 36415; J1650; J1940; J7620

== ENCOUNTER 2018-08-02 10:16 | Emergency (ER) | payer MEDICARE, OTHER ==
[2018-08-02 11:32] LABS: ALT (SGPT) 28 U/L (8-55); AST (SGOT) 42 U/L (5-34); Albumin 3.1 g/dL (3.4-4.8); Alkaline Phosphatase 113 U/L (40-150); Anion Gap 10 mmol/L (10-20); BUN (Urea Nitrogen) 12 mg/dL (9.8-20.1); Bilirubin, Total 0.9 mg/dL (0.2-1.2); Calc. Creatinine Clearance 0 mL/min (70-130); Calcium 8.4 mg/dL (7.8-10.44); Carbon Dioxide 25 mmol/L (23-31); Chloride 107 mmol/L (98-107); Estimated GFR-MDRD 80; Globulin 3.2 g/dL (2.4-3.5); Glucose 88 mg/dL (80-115); Potassium 3.3 mmol/L (3.5-5.1); Protein, Total 6.3 g/dL (6.0-8.3); Sodium 139 mmol/L (136-145)
[2018-08-02 11:35] LABS: Troponin I 0.019 ng/mL (< 0.028)
[2018-08-02 11:36] LABS: Band 11 % (5-11); Eosinophils 2 % (0-10); Hemoglobin 10.5 g/dL (12.0-16.0); Hypochromia SLIGHT = 6-15 cells (100X) (0-5/hpf); Lymphocytes 27 % (21-51); MDiff Complete? YES; Mean Corpuscular HGB CONC 31.9 g/dL (32.0-36.0); Mean Corpuscular Hemoglobin 30.3 pg (27.0-31.0); Mean Corpuscular Volume 94.9 fL (78.0-98.0); Mean Platelet Volume 9.9 fL (7.4-10.4); Monocytes 15 % (0-10); Neutrophil 44 % (42-75); Ovalocytes SLIGHT = 2-5 cells (100X) (0-1/hpf); Platelet Count 84 thou/uL (130-400); Platelet Morphology Comment Appears Decreased; Polychromasia SLIGHT = 2-3 cells (100X) (0-2/hpf); RBC Distribution Width 12.4 % (11.5-14.5); Reactive Lymphocytes 1 % (0-10); Red Blood Cell (RBC) Count 3.46 mill/uL (4.20-5.40); White Blood Cell (WBC) Count 3.1 thou/uL (4.8-10.8)
[2018-08-02] MEDS ORDERED: ISOVUE-370 76%-LOCM 1 ML ONE (11:41)
--- NOTE | 2018-08-02 12:33 | RAD ---
PORTABLE CHEST: History: Productive cough, chills. Comparison: 04-25-18 FINDINGS: Heart size is enlarged. Aorta is mildly tortuous. Chronic lung changes are seen. No definite acute pr ocess. IMPRESSION: Cardiomegaly with chronic appearing interstitial fibrotic lung change. POS: [facility]
--- NOTE | 2018-08-02 13:30 | CT ---
CT ANGIO CHEST PERFORMED WITH INTRAVENOUS CONTRAST ENHANCEMENT WITH 3D RECONSTRUCTIONS: COMPARISON: 04/25/2018 FINDINGS: The lungs show fairly extensive interstitial fibrotic lung change. There is some traction bronchiect asis seen in the lower lobe region. I do not see any definite acute process. There is no significant mediastinal or hilar adenopathy. The thoracic aorta is within normal limits in caliber. There is fairly good pulmonary arterial opacification. There is no CT evidence for pulmonary embolus . Postoperative changes of the stomach region are again noted. There is some distal esophageal wall th ickening, and the distal esophagus is also somewhat distended. All this appears stable. The splenic varices and the lobulated heterogeneous appearance to the liver are also all stable findi ngs, consistent with cirrhosis. IMPRESSION: 1. Chronic lung change. 2. No CT evidence for pulmonary embolus. 3. Very nodular liver, related to cirrhotic change. There are also prominent splenic varices. 4. Postoperative changes of the stomach. 5. Essentially stable examination, as compared to the previous study. POS: [facility]
[2018-08-02] MEDS ORDERED: Dexamethasone 10 MG/ML VIAL ONE (14:08)
== END 2018-08-02 14:15 | disposition home or self-care (01) ==
LOC: ERS 10:16
DX: R06.00 Dyspnea, unspecified (principal); K21.9 Gastro-esophageal reflux disease without esophagitis; D64.9 Anemia, unspecified; E78.5 Hyperlipidemia, unspecified; I10 Essential (primary) hypertension
CPT/HCPCS: 36415; 71045; 71275; 80053; 83880; 84484; 85025; 85379; 87804; 93005; 96374; J1100

== ENCOUNTER 2018-08-06 16:12 | Emergency (ER) | payer MEDICARE, OTHER ==
[2018-08-06] MEDS ORDERED: Ketorolac Tromethamine 30 MG/ML VIAL ONE (17:03)
[2018-08-06 17:26] LABS: INR-International Normal Ratio 1.1; PTT 28.3 SEC (22.9-36.1); Prothrombin Time 14.4 SEC (12.0-14.7)
[2018-08-06 17:28] LABS: Hemoglobin 11.8 g/dL (12.0-16.0); Mean Corpuscular HGB CONC 32.8 g/dL (32.0-36.0); Mean Corpuscular Hemoglobin 30.8 pg (27.0-31.0); Mean Platelet Volume 9.1 fL (7.4-10.4); Platelet Count 143 thou/uL (130-400); RBC Distribution Width 12.7 % (11.5-14.5); Red Blood Cell (RBC) Count 3.84 mill/uL (4.20-5.40); White Blood Cell (WBC) Count 4.8 thou/uL (4.8-10.8)
[2018-08-06 17:48] LABS: ALT (SGPT) 32 U/L (8-55); AST (SGOT) 45 U/L (5-34); Albumin 3.3 g/dL (3.4-4.8); Alkaline Phosphatase 116 U/L (40-150); Anion Gap 13 mmol/L (10-20); BUN (Urea Nitrogen) 15 mg/dL (9.8-20.1); Bilirubin, Total 0.9 mg/dL (0.2-1.2); Calc. Creatinine Clearance 0 mL/min (70-130); Calcium 8.8 mg/dL (7.8-10.44); Carbon Dioxide 24 mmol/L (23-31); Chloride 105 mmol/L (98-107); Estimated GFR-MDRD 64; Globulin 3.6 g/dL (2.4-3.5); Glucose 152 mg/dL (80-115); Potassium 3.6 mmol/L (3.5-5.1); Protein, Total 6.9 g/dL (6.0-8.3); Sodium 138 mmol/L (136-145)
[2018-08-06 17:50] LABS: Acanthocytes SLIGHT = 1-5 cells (100X) (None Seen); Band 3 % (5-11); Hypochromia SLIGHT = 6-15 cells (100X) (0-5/hpf); Lymphocytes 8 % (21-51); MDiff Complete? YES; Monocytes 2 % (0-10); Neutrophil 87 % (42-75); Platelet Morphology Comment Appears Adequate
--- NOTE | 2018-08-06 18:23 | ULT ---
RIGHT LOWER EXTREMITY VENOUS DOPPLER WITH SPECTRAL ANALYSIS AND COLORFLOW EVALUATION: 08/06/2018 HISTORY: Right lower extremity pain and swelling since this morning. TECHNIQUE: Guevara-scale, color-flow, Doppler evaluation, and spectral analysis of the right lower extremity venous structures is performed with 2D imaging. The right lower extremity common femoral, superficial femo ral, popliteal, posterior tibial, and most proximal visualized greater saphenous and profunda femoral veins are imaged. FINDINGS: The mid and distal right lower extremity superficial femoral veins are difficult to visualized on gra y-scale imaging due to depth from the skin surface, which limits evaluation for nonocclusive DVT, but there is flow within these veins. There is otherwise normal lumen compressibility, flow, and augmen tation of the remaining visualized deep venous structures of the right lower extremity. There is an oval-shaped, anechoic area seen in the popliteal fossa, measuring 5.2 cm x 1.8 cm x 1.9 c m, with echogenic material seen within this structure. Color-flow evaluation does not demonstrate fl ow within this structure. This probably represents a mildly complicated James's cyst. IMPRESSION: 1. Limited evaluation of the mid and distal right lower extremity superficial femoral veins on guevara- scale imaging, as described above. This limits evaluation for nonocclusive deep venous thrombosis, b ut there is flow seen within these venous structures. There is otherwise no evidence of deep venous thrombosis seen throughout the remaining visualized deep venous structures of the right lower extremi ty. 2. Findings likely related to a mildly complicated James's cyst in the right popliteal fossa. POS: [facility]
--- NOTE | 2018-08-06 18:52 | RAD ---
PORTABLE CHEST: 08/06/2018 PROVIDED CLINICAL HISTORY: Cough. COMPARISON: 08/02/2018 FINDINGS: The cardiac and mediastinal silhouette is unchanged in appearance. Chronic appearing interstitial iona ng changes are similar. No focal consolidation or pneumothorax evident. IMPRESSION: Stable radiographic appearance of the chest. POS: [facility]
--- NOTE | 2018-08-06 18:53 | RAD ---
RIGHT KNEE RADIOGRAPHS FOUR VIEWS: 08/06/2018 PROVIDED CLINICAL HISTORY: Right knee pain. FINDINGS: There is no evidence for fracture. Alignment appears anatomic. Joint spaces appear preserved. Mild knee joint capsular distention, likely reflecting effusion. Vascular calcifications are seen. Petra ral lucencies are seen at the lateral aspect of the lateral femoral condyle, posteriorly, which may r eflect subcortical cyst-like change related to degenerative change. IMPRESSION: 1. No evidence for an acute osseous abnormality. 2. Mild knee joint effusion. 3. Atherosclerosis. POS: [facility]
== END 2018-08-06 18:50 | disposition home or self-care (01) ==
LOC: ERS 16:12
DX: M17.11 Unilateral primary osteoarthritis, right knee (principal); M71.21 Synovial cyst of popliteal space [Baker], right knee; J20.9 Acute bronchitis, unspecified; E78.5 Hyperlipidemia, unspecified; I10 Essential (primary) hypertension; K21.9 Gastro-esophageal reflux disease without esophagitis; D64.9 Anemia, unspecified; M81.0 Age-related osteoporosis without current pathological fracture
CPT/HCPCS: 36415; 71045; 80053; 83880; 84484; 85025; 85610; 85730; 93005; 96372; J1885

== ENCOUNTER 2018-08-21 15:49 | Emergency (ER) | payer MEDICARE, OTHER ==
--- NOTE | 2018-08-21 16:45 | RAD ---
RADIOGRAPH CHEST 1 VIEW: Date: 08/21/18 Time: 1620 HOURS HISTORY: 68-year-old female with dyspnea and productive cough. COMPARISON: 08/06/18. FINDINGS: Prominent interstitial markings diffusely bilaterally. Confluent areas of infiltrates in the right up per lobe and right lower lobe. These were shown by previous CTA of 08/02/18 to have a chronic appeara nce. Cardiac size at upper limits of normal. Lateral costophrenic angles are not effaced. No pneumoth orax. No new consolidation. No major interval change. IMPRESSION: 1. Diffuse bilateral chronic interstitial lung disease. 2. These chronic interstitial infiltrates are confluent and most severe asymmetrically in particular regions of right upper lobe and right lower lobe. 3. No acute findings. JN [] POS: [facility]
[2018-08-21 16:48] LABS: #Eosinphils 0.1 thou/uL (0.0-0.7); #Monocytes 0.3 thou/uL (0.11-0.59); #Neutrophils 3.5 thou/uL (1.40-6.50); %Basophils 0.2 % (0.0-1.0); %Eosinophils 2.7 % (0.0-10.0); %Lymphocytes 19.4 % (21.0-51.0); %Monocytes 6.6 % (0.0-10.0); %Neutrophils 71.1 % (42.0-75.0); Hemoglobin 10.2 g/dL (12.0-16.0); Mean Corpuscular HGB CONC 31.9 g/dL (32.0-36.0); Mean Corpuscular Hemoglobin 31.3 pg (27.0-31.0); Mean Corpuscular Volume 98.2 fL (78.0-98.0); Mean Platelet Volume 9.9 fL (7.4-10.4); Platelet Count 90 thou/uL (130-400); RBC Distribution Width 14.5 % (11.5-14.5); Red Blood Cell (RBC) Count 3.25 mill/uL (4.20-5.40); White Blood Cell (WBC) Count 4.9 thou/uL (4.8-10.8)
[2018-08-21 17:01] LABS: ALT (SGPT) 44 U/L (8-55); AST (SGOT) 54 U/L (5-34); Albumin 3.3 g/dL (3.4-4.8); Alkaline Phosphatase 122 U/L (40-150); Anion Gap 11 mmol/L (10-20); BUN (Urea Nitrogen) 14 mg/dL (9.8-20.1); Bilirubin, Total 1.5 mg/dL (0.2-1.2); CK (CPK) 133 U/L (29-168); Calc. Creatinine Clearance 0 mL/min (70-130); Calcium 8.7 mg/dL (7.8-10.44); Carbon Dioxide 24 mmol/L (23-31); Chloride 105 mmol/L (98-107); Estimated GFR-MDRD 73; Globulin 3.2 g/dL (2.4-3.5); Glucose 74 mg/dL (80-115); Potassium 3.1 mmol/L (3.5-5.1); Protein, Total 6.5 g/dL (6.0-8.3); Sodium 137 mmol/L (136-145)
[2018-08-21] MEDS ORDERED: predniSONE 20 MG TAB ONE (20:23)
[2018-08-21] MEDS ORDERED: Albuterol Sulfate 2.5 mg/0.5 ml Neb ONE (20:37)
== END 2018-08-21 21:09 | disposition home or self-care (01) ==
LOC: ERS 15:49
DX: R06.02 Shortness of breath (principal); E78.5 Hyperlipidemia, unspecified; I10 Essential (primary) hypertension; K21.9 Gastro-esophageal reflux disease without esophagitis; D64.9 Anemia, unspecified; M81.0 Age-related osteoporosis without current pathological fracture
CPT/HCPCS: 36415; 71045; 80053; 82550; 84484; 85025; 93005; 94640; 94760; J7506; J7611

== ENCOUNTER 2018-10-13 14:10 | Observation (INO) | payer MEDICARE, OTHER ==
[2018-10-13 14:46] LABS: #Eosinphils 0.1 thou/uL (0.0-0.7); #Lymphocytes 1.2 thou/uL (1.20-3.40); #Monocytes 0.3 thou/uL (0.11-0.59); #Neutrophils 2.9 thou/uL (1.40-6.50); %Basophils 0.7 % (0.0-1.0); %Eosinophils 2.7 % (0.0-10.0); %Lymphocytes 26.8 % (21.0-51.0); %Monocytes 7.3 % (0.0-10.0); %Neutrophils 62.5 % (42.0-75.0); Hemoglobin 10.4 g/dL (12.0-16.0); Mean Corpuscular HGB CONC 31.7 g/dL (32.0-36.0); Mean Corpuscular Hemoglobin 32.2 pg (27.0-31.0); Mean Platelet Volume 9.8 fL (7.4-10.4); Platelet Count 113 thou/uL (130-400); RBC Distribution Width 12.8 % (11.5-14.5); Red Blood Cell (RBC) Count 3.22 mill/uL (4.20-5.40); White Blood Cell (WBC) Count 4.6 thou/uL (4.8-10.8)
[2018-10-13 15:00] LABS: ALT (SGPT) 20 U/L (8-55); AST (SGOT) 44 U/L (5-34); Albumin 3.5 g/dL (3.4-4.8); Alkaline Phosphatase 122 U/L (40-150); Anion Gap 9 mmol/L (10-20); BUN (Urea Nitrogen) 13 mg/dL (9.8-20.1); Bilirubin, Total 1.6 mg/dL (0.2-1.2); CK (CPK) 207 U/L (29-168); Calc. Creatinine Clearance 0 mL/min (70-130); Calcium 8.9 mg/dL (7.8-10.44); Carbon Dioxide 25 mmol/L (23-31); Chloride 111 mmol/L (98-107); Estimated GFR-MDRD 69; Globulin 3.3 g/dL (2.4-3.5); Glucose 84 mg/dL (80-115); Potassium 3.6 mmol/L (3.5-5.1); Protein, Total 6.8 g/dL (6.0-8.3); Sodium 141 mmol/L (136-145)
[2018-10-13] MEDS ORDERED: Aspirin 325 MG TAB ONE (15:10)
[2018-10-13] MEDS ORDERED: Furosemide 40 MG/4 ML VIAL ONE (15:10)
[2018-10-13] MEDS ORDERED: Nitroglycerin 2% Ointment 1 INCH/1 GM Packet ONE (15:10)
--- NOTE | 2018-10-13 15:11 | RAD ---
CHEST 1 VIEW: Date: 10/13/18 HISTORY: Shortness of breath. COMPARISON: 08/21/18. FINDINGS: Borderline heart size. Bilateral interstitial and reticulonodular parenchymal changes bilaterally, so mewhat more prominent in the right upper lobe, but stable from prior studies. No new confluent proces s. Slight right costophrenic angle blunting. Old granulomatous disease. Bilateral breast calcificatio ns. IMPRESSION: Overall stable interstitial and reticulonodular parenchymal changes bilaterally, more prominent in th e right upper lobe. Minimal cardiomegaly. No significant new process. POS: [facility]
[2018-10-13 16:44] LABS: Bilirubin Negative (Negative); Blood, Urine Negative (Negative); Clarity CLEAR (Clear); Glucose, Urine (Dipstick) Negative (Negative); Leukocyte Negative (Negative); Nitrite Negative (Negative); Protein, Urine (Dipstick) Negative (Neg-Trace); Specific Gravity, Urine 1.004 (1.002-1.036); Urobilinogen 0.2 mg/dL (0.2-1.0); pH, Urine 6.5 (5.0-9.0)
[2018-10-13 17:57] LABS: Troponin I 0.011 ng/mL (< 0.028)
[2018-10-13 18:40] VITALS: BMI 29.5
[2018-10-13] MEDS ORDERED: Ondansetron ODT 4 MG TAB SL PRN (18:57)
[2018-10-13] MEDS ORDERED: Ondansetron PF 4 MG/2 ML Vial IVP PRN (18:57)
[2018-10-13 20:57] LABS: Troponin I Less than 0.010 ng/mL (< 0.028)
[2018-10-13] MEDS ORDERED: Furosemide 40 MG/4 ML VIAL SLOW IVP SCH (21:00)
[2018-10-13] MEDS ORDERED: Nitroglycerin 2% Ointment 1 INCH/1 GM Packet TOP SCH (23:59)
[2018-10-14] MEDS ORDERED: Acetaminophen 325 MG TAB PO PRN (01:28)
[2018-10-14] MEDS ORDERED: Senokot S 8.6-50 MG TAB PO PRN (01:28)
[2018-10-14] MEDS ORDERED: Temazepam 15 MG CAP PO PRN (01:34)
--- NOTE | 2018-10-14 04:56 | HP ---
PRIMARY CARE PHYSICIAN: Dr. Bahena. CHIEF COMPLAINT: Shortness of breath. HISTORY OF PRESENT ILLNESS: Ms. Cornelius is a 68-year-old female who reported to the emergency room for shortness of breath, night sweats, bilateral leg swelling, onset a few days ago. Son at bedside reports that she has been complaining of her leg swelling for the last 2 weeks, but it has been worse in the last 2 or 3 days. Reports chills with cough. Denies any chest pain. Reports that she has a nebulizer at home. Last used it the day before admission. Chest x-ray performed in the emergency room shows stable chronic changes, mild cardiomegaly, no acute process. EKG shows normal sinus rhythm, beats per minute 69, PACs, first-degree AV block. BNP was 265. PAST MEDICAL HISTORY: Pertinent for paroxysmal atrial fibrillation, lung and liver sarcoidosis, hep C with cirrhosis of the liver, dyslipidemia, hypertension, osteoporosis. Troponins x3 are undetectable. Liver enzymes are unremarkable. Lactic acid was 0.9. The patient was admitted to the observation unit for further management. She does report that she feels better after given Lasix in the emergency room. She does have pitting edema noted to bilateral lower legs. Last echocardiogram was performed on April 27, 2018 showed an ejection fraction visually estimated at 55% to 60%, left atrium upper limit of normal size, does have moderate to severe tricuspid regurgitation, moderate aortic insufficiency, moderately elevated pulmonary artery pressure. She was admitted in April 2018 for atrial fibrillation, RVR and at that time, Dr. Ramachandran's note states that she does have congestive heart failure, diastolic, acute on chronic, probably exacerbated by flecainide, so he changed her to Multaq. She was not a candidate for long-term anticoagulation due to her recurrent iron deficiency. PAST MEDICAL HISTORY: As above, paroxysmal atrial fib, lung and liver sarcoidosis, hep C with cirrhosis of the liver, dyslipidemia, hypertension, osteoporosis, diastolic congestive heart failure. PAST SURGICAL HISTORY: Includes gastric banding and cholecystectomy. ALLERGIES: TO CODEINE. SOCIAL HISTORY: Single. No alcohol, tobacco, or illicit drug use. FAMILY HISTORY: Significant for coronary artery disease. REVIEW OF SYSTEMS: GENERAL: No headaches, dizziness, or fainting. EYES: Denies any vision changes. ENT: Denies any rhinorrhea or sore throat. CARDIAC: Denies any chest pain or palpitations. RESPIRATORY: Occasional cough. Occasional wheezing. Uses an inhaler. GASTROINTESTINAL: Denies any abdominal pain, nausea, vomiting, or diarrhea. : Denies any hematuria or dysuria. MUSCULOSKELETAL: Denies any pain, but does report bilateral lower leg edema. NEUROLOGIC: Denies any strokes, seizures, or focal weakness. PSYCH: Denies any anxiety or depression. SKIN: No bruising, bleeding, or rash. PHYSICAL EXAMINATION: VITAL SIGNS: Temperature is 97.8, pulse is 66, respirations are 20, PO2 sats are 100% on room air, blood pressure is 132/62. CONSTITUTIONAL: The patient is alert and oriented to person, place, and time. HEENT: Head is atraumatic and normocephalic. Pupils equally round and reactive to light. Extraocular muscles are intact. ENT; mouth exam is normal. Mucous membranes are moist. NECK: Trachea is midline. No JVD. RESPIRATORY/CHEST: Breath sounds are clear. No crackles or rhonchi. No wheezing. No signs of respiratory distress. CARDIOVASCULAR: Regular heart rate and rhythm. Murmur is heard. ABDOMEN: Bowel sounds are normal. Abdomen is nontender. BACK: Normal inspection. No tenderness. EXTREMITIES: Upper extremity, motor strength is normal. Radial pulses equal bilaterally. Lower extremity, motor strength is normal. Sensation is intact. No calf tenderness. There is pitting edema noted bilaterally to lower extremities to the knees. NEUROLOGIC: The patient is oriented to person, place, and time. Speech is normal. SKIN: Normal, dry in color. HOME MEDICATIONS: Include: 1. Albuterol inhaler 2 puffs q.4 hours as needed. 2. Multaq 400 mg p.o. b.i.d. 3. Albuterol nebulizer 1.25 mg q.6 hours as needed. 4. Ferrous sulfate 325 mg p.o. b.i.d. 5. Fluconazole 2 sprays each nostril daily. 6. Furosemide 20 mg p.o. daily. 7. Prilosec 40 mg p.o. daily. 8. Tramadol 50 mg p.o. q.6 hours as needed for pain. 9. Triamterene and hydrochlorothiazide 37.5/25 mg one p.o. daily. PERTINENT LABORATORY DATA: Sodium is 141, potassium is 3.6, chloride is 111, carbon dioxide is 25, gap is 9, BUN is 13, creatinine is 0.97, estimated GFR 69, glucose is 84, lactic acid 2.9, calcium 8.9, total bilirubin is 1.6 8, AST is 44, ALT is 20, alkaline phosphatase is 122. CK is 207. Troponin x3 are undetectable. BNP is 265, albumin 3.5, globulin 3.3, lipase is 73. Urine negative. ASSESSMENT AND PLAN: 1. Acute on chronic diastolic congestive heart failure with fluid overload. The patient feels much better after receiving Lasix in the emergency room. We will trend vital signs given more Lasix in the morning. We will obtain a repeat echocardiogram. 2. Sarcoidosis of the lung and liver, appears stable. The patient is 100% on room air. Breath sounds are clear. 3. Hepatitis C with cirrhosis. Liver enzymes are unremarkable. 4. Hypertension. We will continue home medications. We will trend. 5. Dyslipidemia. We will continue home medications. 6. Gastrointestinal and deep venous thrombosis prophylaxis will be started. 7. Hospital course will depend on clinical findings. Job ID: [id number]
[2018-10-14 05:24] LABS: ALT (SGPT) 15 U/L (8-55); AST (SGOT) 34 U/L (5-34); Albumin 2.6 g/dL (3.4-4.8); Alkaline Phosphatase 90 U/L (40-150); Anion Gap 11 mmol/L (10-20); BUN (Urea Nitrogen) 13 mg/dL (9.8-20.1); Bilirubin, Total 1.4 mg/dL (0.2-1.2); Calc. Creatinine Clearance 84 mL/min (70-130); Carbon Dioxide 22 mmol/L (23-31); Chloride 112 mmol/L (98-107); Estimated GFR-MDRD 83; Globulin 2.6 g/dL (2.4-3.5); Glucose 77 mg/dL (80-115); Potassium 3.4 mmol/L (3.5-5.1); Protein, Total 5.2 g/dL (6.0-8.3); Sodium 142 mmol/L (136-145)
[2018-10-14 05:29] LABS: #Eosinphils 0.1 thou/uL (0.0-0.7); #Monocytes 0.4 thou/uL (0.11-0.59); #Neutrophils 1.6 thou/uL (1.40-6.50); %Eosinophils 3.9 % (0.0-10.0); %Lymphocytes 33.6 % (21.0-51.0); %Monocytes 11.6 % (0.0-10.0); Hemoglobin 8.8 g/dL (12.0-16.0); Mean Corpuscular HGB CONC 32.1 g/dL (32.0-36.0); Mean Corpuscular Hemoglobin 32.6 pg (27.0-31.0); Mean Platelet Volume 9.4 fL (7.4-10.4); Platelet Count 82 thou/uL (130-400); RBC Distribution Width 12.7 % (11.5-14.5); Red Blood Cell (RBC) Count 2.71 mill/uL (4.20-5.40); White Blood Cell (WBC) Count 3.1 thou/uL (4.8-10.8)
[2018-10-14] MEDS: Famotidine 20 MG TAB PO SCH ×2 (09:03→20:53)
[2018-10-14] MEDS: traMADol HCl 50 MG TAB PO PRN ×2 (09:03→19:09)
[2018-10-14] MEDS: Dronedarone HCl 400 MG TAB PO SCH ×2 (09:03→17:30)
[2018-10-14] MEDS: Ferrous Sulfate 325 MG TAB PO SCH ×2 (09:03→17:30)
[2018-10-14] MEDS: Furosemide 40 MG/4 ML VIAL SLOW IVP SCH (09:03)
[2018-10-14] MEDS: Triamterene/Hydrochlorothiazide 37.5 mg/25 mg Tablet PO SCH (09:04)
[2018-10-14] MEDS: Enoxaparin Sodium 40 MG/0.4 ML SYRINGE SC SCH (09:04)
[2018-10-14] MEDS ORDERED: ISOVUE-370 76%-LOCM 1 ML ONE (15:39)
[2018-10-14] MEDS ORDERED: Furosemide 20 MG/2 ML VIAL SLOW IVP SCH (16:00)
[2018-10-14] MEDS ORDERED: Potassium Chloride 20 MEQ TAB PO SCH (16:00)
--- NOTE | 2018-10-14 18:28 | PRG ---
DATE OF SERVICE: 10/14/2018 SUBJECTIVE: Ms. Cornelius is a pleasant 68-year-old female with past medical history significant for chronic diastolic heart failure, paroxysmal atrial fibrillation, maintained on Multaq, hypertension, sarcoidosis, and history of hep C, who presented to the hospital with a 3-day history of worsening pedal edema and shortness of breath. She has had associated cough as well. The patient has been admitted with acute on chronic diastolic heart failure exacerbation. She has diuresed well with IV Lasix and does feel mildly improved. She does continue to complain of swelling in her lower extremities and some cough. She does not feel as if she is back to her baseline. She denies any chest pain at this time. She denies any nausea or vomiting. She is a very independent woman, who takes care of all of her own chores and ADLs at home. OBJECTIVE: VITAL SIGNS: Blood pressure 133/62, temperature 98.5, pulse is 63, respirations 16, and O2 saturation is 99% on room air. GENERAL: The patient is resting comfortably in bed. She is in no respiratory distress. She appears her stated age. CV: S1 and S2. Regular rate and rhythm. There is a systolic murmur, grade 3/6 heard best at the apex. LUNGS: Regular respiratory rate and pattern, overall clear to auscultation bilaterally. EXTREMITIES: +2 pitting edema to mid quintana, both lower extremities are warm and well perfused. HEENT: Head is normal normocephalic and atraumatic. Mucous membranes are moist. NECK: No JVD. No carotid bruits. Trachea is midline. SKIN: Warm and dry. No rashes noted. LABORATORY DATA: Hemoglobin 10, hematocrit 31.3, platelets are 82. Sodium 142, potassium 3.4, chloride 112, BUN is 13, creatinine 0.82, AST 34, ALT 15. Serial troponin is negative x3. ASSESSMENT: 1. Acute on chronic diastolic heart failure exacerbation, improving. 2. Systolic murmur, likely secondary to tricuspid regurgitation. 3. Paroxysmal atrial fibrillation, currently in normal sinus rhythm, not on anticoagulation secondary to chronic anemia. 4. Anemia of chronic disease, hemoglobin is stable from prior visits. 5. History of sarcoidosis of the lung and liver. 6. History of hepatitis C. 7. Pulmonary hypertension. PLAN: The patient will need continued IV diuresis for another day given her continuing symptoms. We will monitor her electrolytes and kidney function closely. We will review echocardiogram results. Anticipate discharge tomorrow. Care discussed with Dr. Epstein, who agrees with the above. Job ID: [id number]
--- NOTE | 2018-10-14 21:37 | CT ---
CTA CHEST WITH CONTRAST 10/14/18 Multiple axial tomograms were obtained through the chest following a pulmonary angio protocol with mu ltiplanar reconstruction and 3D postprocessing. INDICATIONS: Shortness of breath. Elevated D-dimer. Correlation made to recent CTA chest dated 08/02/18. That exam revealed severe chronic lung parenchymal changes. FINDINGS: Pulmonary arteries are well opacified. No evidence of pulmonary embolus. Thoracic aorta is unremarkable. No evidence of dissection. Mediastinum unremarkable. The lungs again show severe chronic lung parenchymal changes. There is diffuse parenchymal stranding and interstitial thickening. There are areas of ground glass opacity, especially prominent in the rig ht upper lobe. This is similar to the recent exam and may be chronic. I cannot exclude a component of new infiltrate. No confluent consolidation. No effusion. Images through the upper abdomen again show a nodular liver which was described previously. IMPRESSION: 1. No evidence of pulmonary embolus. 2. Severe chronic lung parenchymal changes. Hazy ground glass opacities are prominent in the rig ht upper lobe but similar to the prior exam. Superimposed infiltrate cannot be excluded. POS: [facility]
[2018-10-15 05:35] LABS: #Eosinphils 0.1 thou/uL (0.0-0.7); #Monocytes 0.3 thou/uL (0.11-0.59); #Neutrophils 1.7 thou/uL (1.40-6.50); %Basophils 1.2 % (0.0-1.0); %Eosinophils 3.1 % (0.0-10.0); %Lymphocytes 31.6 % (21.0-51.0); %Monocytes 9.6 % (0.0-10.0); %Neutrophils 54.7 % (42.0-75.0); Hemoglobin 9.1 g/dL (12.0-16.0); Mean Corpuscular HGB CONC 32.7 g/dL (32.0-36.0); Mean Corpuscular Hemoglobin 32.8 pg (27.0-31.0); Mean Platelet Volume 9.3 fL (7.4-10.4); Platelet Count 84 thou/uL (130-400); RBC Distribution Width 12.5 % (11.5-14.5); Red Blood Cell (RBC) Count 2.78 mill/uL (4.20-5.40); White Blood Cell (WBC) Count 3.2 thou/uL (4.8-10.8)
[2018-10-15 06:01] LABS: ALT (SGPT) 15 U/L (8-55); AST (SGOT) 33 U/L (5-34); Albumin 2.7 g/dL (3.4-4.8); Alkaline Phosphatase 92 U/L (40-150); Anion Gap 9 mmol/L (10-20); BUN (Urea Nitrogen) 16 mg/dL (9.8-20.1); Bilirubin, Total 0.9 mg/dL (0.2-1.2); Calc. Creatinine Clearance 64 mL/min (70-130); Calcium 8.2 mg/dL (7.8-10.44); Carbon Dioxide 30 mmol/L (23-31); Chloride 106 mmol/L (98-107); Estimated GFR-MDRD 65; Globulin 2.7 g/dL (2.4-3.5); Glucose 90 mg/dL (80-115); Potassium 3.8 mmol/L (3.5-5.1); Protein, Total 5.4 g/dL (6.0-8.3); Sodium 141 mmol/L (136-145)
[2018-10-15 08:19] VITALS: BP 115/59; TEMP 98.1
[2018-10-15] MEDS: Enoxaparin Sodium 40 MG/0.4 ML SYRINGE SC SCH (09:42)
[2018-10-15] MEDS: Dronedarone HCl 400 MG TAB PO SCH (09:42)
[2018-10-15] MEDS: Famotidine 20 MG TAB PO SCH (09:42)
[2018-10-15] MEDS: Triamterene/Hydrochlorothiazide 37.5 mg/25 mg Tablet PO SCH (09:42)
[2018-10-15] MEDS: Ferrous Sulfate 325 MG TAB PO SCH (09:42)
[2018-10-15] MEDS: Furosemide 40 MG/4 ML VIAL SLOW IVP SCH (09:42)
--- NOTE | 2018-10-15 17:33 | DIS ---
DATE OF ADMISSION: 10/13/2018 DATE OF DISCHARGE: 10/15/2018 ALLERGIES: CODEINE. CHIEF COMPLAINT: Shortness of breath and lower extremity swelling. FINAL DIAGNOSES: 1. Acute on chronic diastolic heart failure exacerbation, resolved. 2. D-shaped left ventricle end-diastole consistent with right ventricular overload secondary to advanced restrictive lung disease and pulmonary hypertension, no evidence of pulmonary embolism per CTA. 3. Sarcoidosis of the lung and liver. 4. Pancytopenia, with recent bone marrow biopsy pending performed at [facility]. 5. Paroxysmal atrial fibrillation, currently in normal sinus rhythm, CHADS-VASc equals 4, not on anticoagulation secondary to chronic anemia. 6. History of hepatitis C. 7. Pulmonary hypertension with estimated pulmonary artery pressure of 55 mmHg. 8. Systolic murmur secondary to severe tricuspid regurgitation. PROCEDURES PERFORMED: None. LABORATORY DATA: White blood cell count 3.2, hemoglobin 9.1, hematocrit 27.8, MCV 100, and platelet count 84. Sodium 141, potassium 3.8, chloride 106, anion gap 9, BUN 16, creatinine 1.02, GFR 65. AST, ALT, and alkaline phosphatase within normal limits. IMAGING RESULTS: Echocardiogram; ejection fraction estimated at 50% to 55%, flattened end-diastole, D-shaped left ventricle consistent with right ventricular volume overload, grade 2/3 diastolic dysfunction, severe TR, right ventricular systolic pressure estimated at 55 mmHg. CTA of the chest and thorax showed no evidence of pulmonary embolism and severe chronic lung parenchymal changes, hazy ground-glass opacities are prominent in the right upper lobe similar to the prior exam, superimposed infiltrate cannot be excluded. HOSPITAL COURSE: The patient is a pleasant 68-year-old female with past medical history significant for chronic diastolic heart failure, sarcoidosis, paroxysmal atrial fibrillation, and chronic anemia, who presented with complaints of a 2-week history of worsening lower extremity pedal edema and a 2- to 3-day history of worsening shortness of breath. The patient reported no associated chest pain, palpitations, or dizziness. She did have an associated cough. She denied any orthopnea. She was admitted with acute diastolic heart failure exacerbation. She did continue to diurese well with symptomatic improvement. Given the findings of echocardiogram revealing findings consistent with right ventricular volume overload, D-dimer was performed, which was positive, and the patient had CTA performed to rule out PE. There was no evidence of pulmonary embolism per scan, but it did reveal severe parenchymal changes and ground-glass opacities. The patient continued to diurese throughout her stay. Her lower extremity edema is much improved. Her cough is resolved. She has no chest pain. She has ambulated up and down the hallway without issue. PHYSICAL EXAMINATION: VITAL SIGNS: Blood pressure 115/59, pulse is 60, O2 saturation is 99% on room air. GENERAL: The patient is resting comfortably in bed. She is in no respiratory distress. She appears her stated age. NECK: Supple. No lymphadenopathy. No carotid bruits. Trachea is midline. CV: S1 and S2. Regular rate and rhythm. Systolic murmur grade 3/6 heard best at the apex. LUNGS: Regular respiratory rate and pattern, overall clear to auscultation bilaterally. EXTREMITIES: Trace edema bilaterally, much improved. Both extremities are warm and well perfused. HEENT: Head is normocephalic and atraumatic. Mucous membranes are moist. SKIN: Warm and dry. No rashes. NEUROLOGIC: Cranial nerves II through XII intact. The patient is nonfocal. CONDITION AT DISCHARGE: Stable. DISCHARGE MEDICATIONS: 1. Multaq 400 mg p.o. b.i.d. 2. Triamterene/hydrochlorothiazide 37.5/25 one tablet daily. 3. Omeprazole 40 mg capsule daily. 4. Fluticasone two sprays in each nostril daily. 5. Iron supplement 325 mg capsule one tablet p.o. b.i.d. 6. Albuterol sulfate inhaler p.r.n. New medications will be, 1. Furosemide 40 mg tablet one tablet daily. 2. Potassium chloride 20 mEq one tablet daily. DISCHARGE DISPOSITION: Home. PLAN: I have discussed at length with the patient and her family regarding her diagnosis of acute heart failure exacerbation. The patient was not taking her Lasix daily, rather, on an as needed basis. I do believe at this time given her diastolic dysfunction and advanced restrictive lung disease resulting in pulmonary hypertension, that she will need daily maintenance dose of Lasix. This has been explained to the patient and her family. I have also counseled them extensively on heart failure management including daily weights and low-sodium diet. The patient will follow up with her ct technologist, fishing vessel captain, and drywall applicator as an outpatient, she does have appointments scheduled. All questions answered to the satisfaction of the patient and her family. Care discussed with Dr. Epstein, who agrees. Job ID: [id number]
== END 2018-10-15 12:23 | disposition home or self-care (01) ==
LOC: ERS 14:10 → 2SW 16:00
PROVIDERS: ADMIT Internal Medicine; ATTEND Internal Medicine
DX: I11.0 Hypertensive heart disease with heart failure (principal); I50.33 Acute on chronic diastolic (congestive) heart failure; I27.20 Pulmonary hypertension, unspecified; J98.4 Other disorders of lung; D86.89 Sarcoidosis of other sites; D61.818 Other pancytopenia; I48.0 Paroxysmal atrial fibrillation; I07.1 Rheumatic tricuspid insufficiency; M81.0 Age-related osteoporosis without current pathological fracture; D64.9 Anemia, unspecified; Z79.51 Long term (current) use of inhaled steroids; Z79.899 Other long term (current) drug therapy; Z88.5 Allergy status to narcotic agent
CPT/HCPCS: 71045; 71275; 80053 ×3; 81003; 82550; 83605; 83690; 83880; 84484 ×2; 85014; 85018; 85025 ×3; 85379; 87040; 87804 ×2; 93005; 93306; 93798; 96365; 96366; 96372 ×2; 96375; 96376 ×2; 97139; 99285; G0378 ×2; 36415; J1650; J1940; J1956; Q9966

== ENCOUNTER 2018-11-09 21:49 | Emergency (ER) | payer MEDICARE, OTHER ==
--- NOTE | 2018-11-09 22:49 | CT ---
Head CT without contrast 11/09/2018: COMPARISON: 04/28/2017 HISTORY: Altered mental status TECHNIQUE: Axial CT imaging at 5 mm intervals from vertex through skull base without contrast FINDINGS: The imaged paranasal sinuses and mastoid air cells are well aerated. No displaced calvarial fracture. No intracranial hemorrhage, midline shift, mass effect, or ventricular enlargement. IMPRESSION: No acute findings.
[2018-11-09 23:10] LABS: Hemoglobin 10.5 g/dL (12.0-16.0); Mean Corpuscular HGB CONC 32.3 g/dL (32.0-36.0); Mean Corpuscular Hemoglobin 31.8 pg (27.0-31.0); Mean Corpuscular Volume 98.4 fL (78.0-98.0); Red Blood Cell (RBC) Count 3.32 mill/uL (4.20-5.40); White Blood Cell (WBC) Count 4.5 thou/uL (4.8-10.8)
--- NOTE | 2018-11-09 23:14 | RAD ---
Portable frontal chest radiograph: 11/09/2018 COMPARISON: 10/13/2018 HISTORY: Altered mental status FINDINGS: Coarse increased linear interstitial density again noted, most prominent in the right upper lobe. Findings are unchanged when compared to 10/13/2018. There is no pneumothorax or pleural fluid. There is no lobar consolidation or alveolar edema. Multiple upper abdominal postsurgical clips again seen. IMPRESSION: Stable appearance of the chest as detailed above. No focal consolidation or alveolar ervin a.
[2018-11-09 23:15] LABS: Acetaminophen Less than 6.0 mcg/mL (10.0-30.0); Alcohol Less than 10 mg/dL (Less than 10); Salicylate Less than 8.0 mg/dL (15.0-30.0)
[2018-11-09 23:16] LABS: ALT (SGPT) 30 U/L (8-55); AST (SGOT) 55 U/L (5-34); Albumin 3.2 g/dL (3.4-4.8); Alkaline Phosphatase 124 U/L (40-150); Anion Gap 10 mmol/L (10-20); BUN (Urea Nitrogen) 19 mg/dL (9.8-20.1); Bilirubin, Total 1.2 mg/dL (0.2-1.2); Calc. Creatinine Clearance 0 mL/min (70-130); Calcium 8.5 mg/dL (7.8-10.44); Carbon Dioxide 27 mmol/L (23-31); Chloride 98 mmol/L (98-107); Estimated GFR-MDRD 69; Globulin 3.3 g/dL (2.4-3.5); Glucose 93 mg/dL (80-115); Potassium 3.1 mmol/L (3.5-5.1); Protein, Total 6.5 g/dL (6.0-8.3); Sodium 132 mmol/L (136-145)
[2018-11-09 23:28] LABS: #Eosinphils 0.1 thou/uL (0.0-0.7); #Lymphocytes 1.1 thou/uL (1.20-3.40); #Monocytes 0.4 thou/uL (0.11-0.59); #Neutrophils 2.9 thou/uL (1.40-6.50); %Eosinophils 1.9 % (0.0-10.0); %Lymphocytes 24.3 % (21.0-51.0); %Monocytes 8.1 % (0.0-10.0); %Neutrophils 64.7 % (42.0-75.0); Mean Platelet Volume 9.3 fL (7.4-10.4); Platelet Count 99 thou/uL (130-400); RBC Distribution Width 11.9 % (11.5-14.5)
[2018-11-09 23:29] LABS: MDiff Complete? YES; Platelet Morphology Comment Appears Decreased; Schistocytes SLIGHT = 2-5 cells (100X) (0-1/hpf)
[2018-11-09 23:46] LABS: Bilirubin Negative (Negative); Blood, Urine Negative (Negative); Clarity CLEAR (Clear); Glucose, Urine (Dipstick) Negative (Negative); Leukocyte Small (Negative); Nitrite Negative (Negative); Protein, Urine (Dipstick) Negative (Neg-Trace); Specific Gravity, Urine 1.017 (1.002-1.036)
[2018-11-09 23:48] LABS: Bacteria/HPF None Seen HPF (None Seen); Hyaline Casts/LPF 4-6 HYALINE CAST LPF (0-3 Hyaline); Pathc Cast-AUWi Flag 1.08 (0-2.49); RBC/HPF 0-3 HPF (0-3)
[2018-11-10 00:01] LABS: Amphetamine Not Detected (NotDetected); Barbiturates Screen Not Detected (NotDetected); Benzodiazepine Screen Not Detected (NotDetected); Cocaine Metabolite Screen Not Detected (NotDetected); Medtox Control Line Valid? VALID (VALID); Medtox Reader # READER 4; Methadone Not Detected (NotDetected); Methamphetamine Not Detected (NotDetected); Opiate Screen Not Detected (NotDetected); Oxycodone Screen Not Detected (NotDetected); Phencyclidine (PCP) Not Detected (NotDetected); THC/Cannabinoid Screen Not Detected (NotDetected); Tricyclic Screen Not Detected (NotDetected)
== END 2018-11-10 00:44 | disposition home or self-care (01) ==
LOC: ERS 21:49
DX: R53.1 Weakness (principal); I10 Essential (primary) hypertension; K21.9 Gastro-esophageal reflux disease without esophagitis; D64.9 Anemia, unspecified; E11.9 Type 2 diabetes mellitus without complications; E78.5 Hyperlipidemia, unspecified; Z79.899 Other long term (current) drug therapy; Z79.51 Long term (current) use of inhaled steroids
CPT/HCPCS: 36415; 70450; 71045; 80053; 80306; 80307; 81003; 81015; 82140; 84443; 84484; 85025; 87086; 93005

== ENCOUNTER 2018-11-14 11:05 | Emergency (ER) | payer MEDICARE, OTHER ==
[2018-11-14 12:14] LABS: #Eosinphils 0.1 thou/uL (0.0-0.7); #Lymphocytes 1.1 thou/uL (1.20-3.40); #Monocytes 0.2 thou/uL (0.11-0.59); #Neutrophils 2.3 thou/uL (1.40-6.50); %Basophils 0.7 % (0.0-1.0); %Eosinophils 1.5 % (0.0-10.0); %Neutrophils 62.9 % (42.0-75.0); Mean Corpuscular HGB CONC 31.2 g/dL (32.0-36.0); Mean Corpuscular Hemoglobin 30.5 pg (27.0-31.0); Mean Corpuscular Volume 97.7 fL (78.0-98.0); Mean Platelet Volume 9.4 fL (7.4-10.4); Platelet Count 127 thou/uL (130-400); RBC Distribution Width 12.1 % (11.5-14.5); Red Blood Cell (RBC) Count 3.94 mill/uL (4.20-5.40); White Blood Cell (WBC) Count 3.7 thou/uL (4.8-10.8)
[2018-11-14 12:32] LABS: ALT (SGPT) 38 U/L (8-55); AST (SGOT) 58 U/L (5-34); Albumin 3.6 g/dL (3.4-4.8); Alkaline Phosphatase 132 U/L (40-150); Anion Gap 12 mmol/L (10-20); BUN (Urea Nitrogen) 19 mg/dL (9.8-20.1); Bilirubin, Total 1.3 mg/dL (0.2-1.2); Calc. Creatinine Clearance 0 mL/min (70-130); Calcium 9.3 mg/dL (7.8-10.44); Carbon Dioxide 24 mmol/L (23-31); Chloride 107 mmol/L (98-107); Estimated GFR-MDRD 52; Globulin 3.7 g/dL (2.4-3.5); Glucose 112 mg/dL (80-115); Protein, Total 7.3 g/dL (6.0-8.3); Sodium 139 mmol/L (136-145)
--- NOTE | 2018-11-14 13:20 | RAD ---
PORTABLE CHEST 1 VIEW: DATE: 11/14/2018. TIME: 12:54 p.m. HISTORY: Tachycardia. FINDINGS: Comparison is made with the exam of 11/09/2018. The heart size is normal. The aorta is tortuous. Chronic changes in the lung gonzalez are again seen bilaterally. No lobar consolidation, pneumothoraces, pedro pulmonary edema, or pleural effusions are identified. Surgical clips in the upper abdomen are redemonstrated. IMPRESSION: No radiographic evidence of acute cardiopulmonary process. POS: TPC
== END 2018-11-14 13:37 | disposition home or self-care (01) ==
LOC: ERS 11:05
DX: I48.0 Paroxysmal atrial fibrillation (principal); E78.5 Hyperlipidemia, unspecified; I10 Essential (primary) hypertension; K21.9 Gastro-esophageal reflux disease without esophagitis; D64.9 Anemia, unspecified; Z79.899 Other long term (current) drug therapy; Z79.51 Long term (current) use of inhaled steroids
CPT/HCPCS: 71045; 80053; 84484; 85025; 93005

== ENCOUNTER 2018-11-29 13:59 | Inpatient (IN) | payer MEDICARE, OTHER ==
[2018-11-29 14:42] LABS: #Basophils 0.1 thou/uL (0.0-0.2); #Eosinphils 0.1 thou/uL (0.0-0.7); #Lymphocytes 1.5 thou/uL (1.20-3.40); #Monocytes 0.3 thou/uL (0.11-0.59); #Neutrophils 2.3 thou/uL (1.40-6.50); %Basophils 1.4 % (0.0-1.0); %Eosinophils 2.9 % (0.0-10.0); %Lymphocytes 35.7 % (21.0-51.0); %Monocytes 7.7 % (0.0-10.0); %Neutrophils 52.4 % (42.0-75.0); Hemoglobin 9.8 g/dL (12.0-16.0); Mean Corpuscular HGB CONC 32.4 g/dL (32.0-36.0); Mean Corpuscular Hemoglobin 31.6 pg (27.0-31.0); Mean Corpuscular Volume 97.5 fL (78.0-98.0); Platelet Count 120 thou/uL (130-400); RBC Distribution Width 12.9 % (11.5-14.5); White Blood Cell (WBC) Count 4.3 thou/uL (4.8-10.8)
[2018-11-29 14:47] LABS: INR-International Normal Ratio 1.2; PTT 41.1 SEC (22.9-36.1); Prothrombin Time 15.3 SEC (12.0-14.7)
[2018-11-29 15:09] LABS: ALT (SGPT) 28 U/L (8-55); AST (SGOT) 49 U/L (5-34); Albumin 3.3 g/dL (3.4-4.8); Alkaline Phosphatase 97 U/L (40-150); Anion Gap 10 mmol/L (10-20); BUN (Urea Nitrogen) 24 mg/dL (9.8-20.1); Calc. Creatinine Clearance 0 mL/min (70-130); Calcium 9.2 mg/dL (7.8-10.44); Carbon Dioxide 29 mmol/L (23-31); Chloride 105 mmol/L (98-107); Estimated GFR-MDRD 36; Globulin 3.6 g/dL (2.4-3.5); Glucose 97 mg/dL (80-115); Potassium 3.7 mmol/L (3.5-5.1); Protein, Total 6.9 g/dL (6.0-8.3); Sodium 140 mmol/L (136-145)
[2018-11-29] MEDS ORDERED: Ondansetron PF 4 MG/2 ML Vial IVP PRN (19:27)
[2018-11-29] MEDS ORDERED: Ondansetron ODT 4 MG TAB SL PRN (19:27)
[2018-11-29] MEDS ORDERED: Sodium Chloride 0.9% 1,000 ML IV SCH (19:27)
[2018-11-29 21:42] VITALS: BMI 27.4
[2018-11-29] MEDS ORDERED: Pantoprazole 40 MG VIAL IVP SCH (22:15)
[2018-11-29] MEDS ORDERED: Sodium Chloride 0.9% (PF) 10 ML VIAL FS PRN (22:16)
[2018-11-29] MEDS ORDERED: Albuterol Sulfate 2.5 mg/3 ml Neb NEB PRN (22:25)
[2018-11-29 22:29] LABS: Hemoglobin 8.6 g/dL (12.0-16.0)
--- NOTE | 2018-11-30 02:51 | HP ---
CHIEF COMPLAINT: Blood per rectum. HISTORY OF PRESENT ILLNESS: The patient is a 68-year-old female who has a history of sarcoidosis of the liver and the lungs, who has also a history of atrial fibrillation. She was here most recently in the end of September with what appeared to be some decompensated heart failure at that time. The patient had echocardiogram which revealed normal ejection fraction. However, she had significant pulmonary hypertension, cor pulmonale and right heart failure. The patient was diuresed and did well at that time. The patient was not on anticoagulation for atrial fibrillation because she had chronic anemia. My records from the EHR indicate that the patient had outside prescription for Eliquis filled on 11/03, and it is believed that she has been taking that medication, although she is unsure herself at the moment. Today, the patient reported that she had a bowel movement and with that she had bright red blood on the toilet paper. She denied any blood in the stool or in the toilet that she was aware of. She notified her daughter and she was then taken to her primary care physician who [facility] labs and told her to come to the hospital because her hemoglobin was low. The patient denies any significant abdominal pain, melena or hematemesis or coffee-grounds emesis. Currently, she feels hungry, but otherwise okay. REVIEW OF SYSTEMS: The patient denies any fevers or chills, any significant weight loss. Reports her breathing is actually doing quite well overall. All other systems were reviewed and all pertinent positives and negatives noted here in the history of present illness. PAST MEDICAL HISTORY: History of sarcoidosis of the lungs and of the liver. She has history of hepatitis C with liver cirrhosis, paroxysmal atrial fibrillation, hypertension, dyslipidemia, osteoporosis. As mentioned, prior echo revealed EF of 50% to 55%. A D-shaped ventricle consistent with right ventricular volume overload. A grade 2/3 diastolic dysfunction, severe tricuspid regurgitation, right ventricular systolic pressure is at 55 mmHg, and moderate pulmonary regurgitation present. PAST SURGICAL HISTORY: Gastric banding and cholecystectomy. FAMILY HISTORY: Notable for coronary artery disease. SOCIAL HISTORY: The patient is not . She denies alcohol, tobacco, or drugs. She is full code, although she has been thinking about that more and is trying to work on some paperwork to address some of these issues at home. Her daughter or son would be her surrogate decision maker. ALLERGIES: CODEINE. CURRENT MEDICATIONS: 1. Lasix 40 mg daily. 2. Dyazide 37.5-25 one p.o. daily. 3. Metoprolol 25 mg b.i.d. 4. Eliquis 5 mg b.i.d. 5. Torsemide 20 mg daily. 6. Memantine 5 mg b.i.d. 7. Mirtazapine 7.5 mg at bedtime. 8. Multaq 400 mg b.i.d. 9. Tramadol 50 mg q.6 hours p.r.n. pain. PHYSICAL EXAMINATION: VITAL SIGNS: Temperature 97.4, pulse 53, respirations 18, O2 saturation 99% on room air, BP 126/77. GENERAL APPEARANCE: Age-appropriate female, in no distress. She is awake, alert, oriented, pleasant, and cooperative. She does have a little bit of word-finding difficulty at times, but is able to recount the events of today pretty accurately. HEENT: PERRL. No OP lesion. She has a partial denture. NECK: Supple and symmetric. HEART: Borderline bradycardic. There is a 2/6 murmur heard best at the left upper sternal border. It is regular. LUNGS: Noted to have scattered rales throughout, worse at both bases with fair air exchange. ABDOMEN: Soft, nontender, and nondistended. Positive bowel sounds. No masses. No organomegaly. EXTREMITIES: Have trace to 1+ bilateral lower extremity edema below the knee. There is no clubbing or cyanosis. SKIN: Warm and dry. LABORATORY DATA: White count 4.3, hemoglobin 9.8, platelets 120. INR is 1.2, PTT 41.1. Chemistries, BUN is 24, creatinine is 1.69, GFR is at 36. AST 49, ALT 28, albumin is 3.3. IMPRESSION AND PLAN: 1. Lower gastrointestinal bleed. The quality of this sounds fairly minimal at this point. The patient only reports some bright red blood on her toilet paper. Denies any other blood per rectum. The patient is apparently back on Eliquis and this may be a relatively benign finding. 2. Anemia. The patient has a history of some intermittent anemia likely related to her chronic kidney disease. However, her most recent hemoglobin was on 11/14/2018, and it was at 12, so it has only been 2 weeks and she has dropped over 2 g. We will therefore need to continue to monitor. It appears as though her baseline hemoglobin is somewhere around 10.1 to 10.2. 3. Thrombocytopenia, chronic, likely related to her liver disease. 4. Acute renal failure on chronic kidney disease stage 3. The patient's typical GFR is in the 60s. She is now at 36 with increase in BUN and creatinine. The patient will receive IV fluids gently given her history of the right heart failure. The patient appears to have 2 diuretics listed on her medications. We will need to get some clarification on those before resuming any of her medications. 5. Cirrhosis of the liver from history of hepatitis C and apparently some sarcoidosis as well, appears to be chronic. Her coags are off, but not terrible. 6. History of atrial fibrillation. She appears to be in sinus rhythm at the moment and stable. We will not continue any Eliquis at this time until the gastrointestinal bleeding situation can be further elucidated. Continue with the Multaq. 7. Sarcoidosis of the lungs and of the liver. We will continue with oxygen only as needed and p.r.n. nebulizer treatments. 8. Apparently, the family reported some evidence of memory issues or dementia in the emergency department. The patient appears to have pretty good recall of events today. Job ID: [id number]
[2018-11-30 08:27] LABS: #Eosinphils 0.1 thou/uL (0.0-0.7); #Lymphocytes 1.1 thou/uL (1.20-3.40); #Monocytes 0.2 thou/uL (0.11-0.59); #Neutrophils 1.6 thou/uL (1.40-6.50); %Basophils 0.6 % (0.0-1.0); %Eosinophils 4.1 % (0.0-10.0); %Lymphocytes 36.7 % (21.0-51.0); %Monocytes 6.7 % (0.0-10.0); %Neutrophils 51.9 % (42.0-75.0); Hemoglobin 9.7 g/dL (12.0-16.0); Mean Corpuscular HGB CONC 32.7 g/dL (32.0-36.0); Mean Corpuscular Hemoglobin 31.8 pg (27.0-31.0); Mean Corpuscular Volume 97.1 fL (78.0-98.0); Mean Platelet Volume 10.1 fL (7.4-10.4); Platelet Count 113 thou/uL (130-400); RBC Distribution Width 12.9 % (11.5-14.5); Red Blood Cell (RBC) Count 3.04 mill/uL (4.20-5.40); White Blood Cell (WBC) Count 3.1 thou/uL (4.8-10.8)
[2018-11-30] MEDS ORDERED: Prevnar 13-Val Conj/PF 0.5 ML SYRINGE IM ONE (09:00)
--- NOTE | 2018-11-30 10:44 | PRG ---
DATE OF SERVICE: 11/30/2018 SUBJECTIVE: The patient was seen and examined at the bedside. She does not have much complaints to offer. She had bowel movement without any blood on the toilet paper during this hospitalization. OBJECTIVE: VITAL SIGNS: Blood pressure is 128/67, pulse is 56, temperature is 98.0, respirations 16, and O2 saturation is 100% on room air. HEENT: Her head is atraumatic and normocephalic. Eyes are PERRLA. Sclerae are nonicteric. Oral mucosa is dry. NECK: Supple. LUNGS: Clear. HEART: S1 and S2 normal. ABDOMEN: Soft, nontender, and nondistended. Slightly obese. No guarding. No masses. EXTREMITIES: No clubbing or cyanosis. There is 1+ to 2+ peripheral edema on both lower extremities. NEUROLOGIC: She is alert and oriented x4. There are no any sensory or motor deficits. Cranial nerves are intact. LABORATORY DATA: Labs showed white count of 3.1, hemoglobin 9.7, hematocrit 29.5, and platelet count is 113,000. No chemistry panel this morning. Microbiology, nothing. IMPRESSION: 1. Lower gastrointestinal bleed, seen by Dr. Bunn, scheduled for upper and lower scoping tomorrow morning, Eliquis is on hold. 2. Anemia. 3. Pancytopenia related to chronic liver disease. 4. Acute renal failure on chronic kidney disease, stage 3. 5. Liver cirrhosis. 6. History of hepatitis C. 7. History of sarcoidosis. 8. History of atrial fibrillation, on Eliquis at home and Multaq. PLAN: Plan is to scope her tomorrow morning, upper and lower, by GI Dr. Bunn. Continue her current regimen medications except for diuretic. I am going to restart her Multaq, and we will check BMP and continue DVT prophylaxis with SCDs and p.r.n. Ritab. Job ID: [id number]
[2018-11-30] MEDS ORDERED: GoLYTELY 4,000 ml Bottle PO SCH (10:45)
[2018-11-30 11:12] LABS: Anion Gap 10 mmol/L (10-20); BUN (Urea Nitrogen) 22 mg/dL (9.8-20.1); Calc. Creatinine Clearance 51 mL/min (70-130); Calcium 8.8 mg/dL (7.8-10.44); Carbon Dioxide 26 mmol/L (23-31); Chloride 112 mmol/L (98-107); Estimated GFR-MDRD 51; Glucose 82 mg/dL (80-115); Potassium 3.9 mmol/L (3.5-5.1); Sodium 144 mmol/L (136-145)
--- NOTE | 2018-11-30 12:26 | ULT ---
EXAM: US Hepatic Doppler PROVIDED CLINICAL HISTORY: Cirrhosis, hepatoma screening. COMPARISON: 05/19/2016 FINDINGS: The majority of the pancreas is obscured by bowel gas but where visualized demonstrates a grossly nor mal sonographic appearance. The gallbladder is nonvisualized related to patient's history of prior cholecystectomy. The common du ct measures 0.1 cm and is nondilated. The liver again demonstrates mild heterogeneity. There is a nodular peripheral contour suggesting cir rhosis. No discrete hepatic mass is visualized on sonographic evaluation. Visualized portions of the IVC of the IVC and abdominal aorta demonstrate a normal sonographic appear ance. The spleen demonstrates a grossly normal sonographic appearance. The echogenic lesion seen in the spl een on prior study in 2016 is not seen on today's images. The spleen is not enlarged. The right kidney is not well assessed but demonstrates a grossly normal sonographic appearance. There is no hydronephrosis. Hepatic Doppler with grayscale and color flow evaluation and spectral analysis demonstrates normal di rectional flow seen within the hepatic, splenic, and portal veins. Arterial Doppler evaluation of the splenic and hepatic arteries demonstrates arterial waveforms. IMPRESSION: 1. Findings suggestive of cirrhosis with mild heterogeneity of the liver. No discrete mass is seen in the liver. 2. Postcholecystectomy. 3. Normal directional flow is seen within the portal, hepatic, and splenic veins.
[2018-11-30] MEDS: Sodium Chloride 0.9% 1,000 ML IV SCH (12:36)
[2018-11-30] MEDS: Acetaminophen 325 MG TAB PO PRN ×2 (13:20→18:28)
[2018-11-30] MEDS: Dronedarone HCl 400 MG TAB PO SCH (17:30)
[2018-12-01] MEDS: Sodium Chloride 0.9% 1,000 ML IV SCH ×2 (03:10→15:32)
[2018-12-01 06:38] LABS: Hemoglobin 9.4 g/dL (12.0-16.0)
[2018-12-01 06:57] LABS: Anion Gap 9 mmol/L (10-20); BUN (Urea Nitrogen) 17 mg/dL (9.8-20.1); Calc. Creatinine Clearance 64 mL/min (70-130); Calcium 8.6 mg/dL (7.8-10.44); Carbon Dioxide 26 mmol/L (23-31); Chloride 114 mmol/L (98-107); Estimated GFR-MDRD 67; Glucose 84 mg/dL (80-115); Potassium 3.4 mmol/L (3.5-5.1); Sodium 146 mmol/L (136-145)
[2018-12-01 07:31] LABS: Folate (Folic Acid) 9.7 ng/mL (7.0-31.4)
[2018-12-01] MEDS: Dronedarone HCl 400 MG TAB PO SCH ×2 (09:41→15:31)
[2018-12-01] MEDS ORDERED: Lidocaine 1% PF 5 ML VIAL ONE (10:18)
[2018-12-01] MEDS ORDERED: PROPOFOL 200 MG/20 ML VIAL ONE (10:18)
[2018-12-01] MEDS ORDERED: Ondansetron HCl/PF 4 MG/2 ML Vial IVP PRN (10:25)
[2018-12-01] MEDS ORDERED: Promethazine HCl 25 MG/ML VIAL IM PRN (10:25)
[2018-12-01] MEDS ORDERED: Promethazine HCl 25 MG/ML VIAL SLOW IVP PRN (10:25)
--- NOTE | 2018-12-01 10:45 | CON ---
DATE OF CONSULTATION: REASON FOR CONSULT: Rectal bleeding. HISTORY OF PRESENT ILLNESS: Ms. Jacob Cornelius is a 68-year-old female, who came to the emergency room because she had some blood in her stool in the past day or two. I talked with her, she states she has liver problems with continence and she was using pads on her bottom, which caused some irritation to the skin and she noticed some bright red blood with her bowel movement in the last couple of days. There was no clot and this was mainly around the tissue and some dripping in the bowl. She did not feel bad. It has happened a couple of times. Her family called her primary physician, who recommended she come to the hospital. She came here to [facility]. Per the nurse's report, she has had no bowel movement since admission. She denies any fever or chills, nausea, vomiting, or abdominal pain. She denies any hematemesis. She denies any melena. In the past, she has been diagnosed with cirrhosis and sarcoidosis of the liver based on biopsies in [place]. She had been seeing my partner, Dr. Ney Guevara, and has actually had banding of varices in the past in the esophagus, most recently was in 2017. Initially, she was on primary prophylaxis with nadolol, but she would not tolerate that from a cardiovascular and breathing standpoint; so this was stopped and ultimately she had some bleeding, and was started on the banding program. Apparently, she has a new history of atrial fibrillation. She is also here in September and had decompensation with some heart failure at that time. She had normal ejection fraction, but had significant pulmonary hypertension and cor pulmonale and right-sided heart failure. With that, she has had some peripheral edema in her legs. Apparently, she was not placed on anticoagulation secondary to her chronic anemia and cirrhosis, but the patient did get an outside prescription for Eliquis in 10/2018; however, the patient and family are unsure if she was using that medication. The patient's daughter and I talked on the phone, noted that the medicines were in the room, but on talking with the patient, the medicines actually were taken home. PAST MEDICAL HISTORY: 1. Sarcoid of the lung and liver, cirrhosis of the liver, paroxysmal atrial fibrillation, dyslipidemia, osteopenia, fairly severe right heart failure with cor pulmonale with severe TR. 2. History of esophageal varices. PAST SURGICAL HISTORY: Bariatric surgery and cholecystectomy. Prior history of hepatic encephalopathy. FAMILY HISTORY: Coronary disease. SOCIAL HISTORY: She is not . She lives with her daughter. She does not drink, smoke, or use drugs. ALLERGIES: NONE KNOWN. MEDICATIONS: At home; 1. Lasix. 2. Dyazide. 3. Metoprolol. 4. Possibly Eliquis. 5. . 6. Memantine. 7. Mirtazapine. 8. Multaq. 9. Tramadol. REVIEW OF SYSTEMS: The patient notes she is taking some medicines for confusion. When asked if she is taking any of the old lactulose, the sweet medicine, she states that medicine was changed to the pills. I am assuming that is the memantine and mirtazapine. PHYSICAL EXAMINATION: GENERAL: The patient is resting comfortably in bed. VITAL SIGNS: Temperature is 98, pulse 56, blood pressure 126/76. LUNGS: Clear. HEART: Regular rate and rhythm without clicks, rubs, or murmurs. ABDOMEN: Soft and nontender without any palpable hepatosplenomegaly. There is no shifting dullness or fluid wave. EXTREMITIES: There is peripheral edema noted. There is mild JVD noted. There is no asterixis. LABORATORY DATA: White count is 3.1, hemoglobin 9.7, platelet count 113. INR 1.2. Sodium 144, potassium 3.9, BUN and creatinine of 22 and 1.25. AST was 49 on admission, ALT was 26, alkaline phosphatase was 97, bilirubin was 1, iron was 110 in 2018, ferritin was 322, albumin 3.3, protein is 6.9. AFP in 2017 was 3.1. B12 in 02/2015 was 574. Urine drug screen on 11/09/2018 was normal. Previous celiac workup on 06/07/2012 was negative. Hepatitis A, B, and C serologies in 11/2012 was negative. Last hepatoma screening was in 2017, which was normal. ASSESSMENT: 1. Chronic anemia. This is not new. This is probably more related to chronic disease and her sarcoid. 2. Cirrhosis, likely related to sarcoid and passive congestion from the cor pulmonale. She needs some hepatoma screening. In the past, she has had hepatic encephalopathy of this. Some of her confusion issues that are being treated with Namenda and other dementia drugs may be misdirected and a lot of this may be mild hepatic encephalopathy. 3. Hepatic encephalopathy in the past. She has had been placed on lactulose, which responded well too and this needs to be reintroduced. 4. Prior history of gastric bypass surgery. I do not know if this is a sleeve or band. She seems to be doing well with this and her vitamin levels are good in the past, needs to be rechecked. 5. History of esophageal varices, which were banded secondary to red sylvia sign and previous bleeding. There are no signs of bleeding now, but this needs to be re-evaluated as she has had an upper endoscopy in 2 years. 6. Rectal bleeding, likely hemorrhoidal. She has brown stool on digital rectal exam. 7. Recent diagnosis of atrial fibrillation. It is unclear where she was seen and blood thinners were started, but this is probably not a good idea in light of her history of varices and probably she need to go ahead and be stopped. There is a relative contraindication to anticoagulation with her confusion and risk for falls, history of esophageal varices and risk of hemorrhage. After talking with the patient's daughter about the need for followup evaluation we talked with her about the other medical issues. We will go ahead and perform that tomorrow while she is here in the hospital, which her daughter preferred as opposed to having to set something up in the outpatient setting. Issue with rectal bleeding and worsening anemia, we will proceed with a colonoscopy as well. Job ID: [id number]
--- NOTE | 2018-12-01 11:27 | OP ---
DATE OF PROCEDURE: 12/01/2018 PROCEDURE PERFORMED: Esophagogastroduodenoscopy with banding of esophageal varices, colonoscopy diagnostic. PREOPERATIVE DIAGNOSES: 1. History of cirrhosis by biopsy. 2. Prior history of hepatitis C, treated. 3. History of sarcoidosis. 4. History of esophageal varices on prophylactic banding with last banding in 2017. 5. Admitted with rectal bleeding, which turns out to be rectal outlet bleeding. Last colonoscopy in remote past. POSTOPERATIVE DIAGNOSES: 1. Esophagogastroduodenoscopy anatomy consistent with previous Ree-en-Y gastric bypass with no bleeding sites identified. 2. Varices grade 2 to 3 in the lower esophagus, banded x3 for primary prophylaxis of variceal bleeding as she was intolerant of beta-blockers in the past and remote history of bleeding about 7 to 10 years ago. 3. Colonoscopy normal including the terminal ileum. Bleeding was rectal outlet in origin, likely hemorrhoidal. RECOMMENDATIONS: 1. Continue present medications. 2. Daily fiber. 3. Follow up in the office in 6 months regarding hepatoma screening. Her ultrasound and AFP were normal this admission here. ANESTHESIA: TIVA. DESCRIPTION OF PROCEDURE: The patient was informed of the risks, benefits, and possible complications of endoscopy including perforation, reaction to medication, and aspiration informed consent was obtained. The patient was brought to the endoscopy suite, where she was sedated in a gradual fashion. When she was comfortable, bite block was placed inside the orifice. The endoscope was inserted to the esophagus, stomach, and second and third portions of the duodenum and slowly removed. There was good visualization of the mucosa. The esophagus was notable for 2 columns of grade 2 to 3 varices. No stigmata of bleeding. She had been on a banding protocol in the past for prophylaxis, this was continued and 3 bands were placed over these varices with good ablation and no bleeding. The stomach was notable for previous Ree-en-Y gastric bypass and the gastric pouch was normal as was the anastomosis. The gastrojejunal area and the jejunal limb were normal. The scope was then removed. The patient was turned to the room and rectal examination was performed, which was normal. The endoscope was advanced to the anal canal through the colon to the cecum, which was identified by the ileocecal valve and appendiceal orifice. This area was normal. The prep was good. The scope was then slowly removed. There was good visualization of the mucosa. There were no polyps, masses, or other lesions. There were no bleeding sites identified. Retroflexed views did reveal some small internal hemorrhoids. This was probably the site that caused her to have a little bit of rectal bleeding that brought her to the emergency room. The scope was then removed. The patient tolerated the procedure well without complications. Job ID: [id number]
[2018-12-01] MEDS: Acetaminophen 325 MG TAB PO PRN (15:31)
[2018-12-01] MEDS ORDERED: traMADol HCl 50 MG TAB PO PRN (17:54)
--- NOTE | 2018-12-01 17:58 | PDOC.PN ---
- Subjective Encounter Start Date: 12/01/18 Encounter Start Time: 15:30 Patient seen and examined for GI bleed. No new episodes of melena or hematemesis. s/o EGD/Colonoscopy. No new complaints. No overnight events - Objective Resuscitation Status - Order Detail: 11/29/18 22:08 Resuscitation Status Routine Resuscitation Status: FULL: Full Resuscitation MAR Reviewed: Yes Vital Signs & Weight: Vital Signs (12 hours) Temp Pulse Resp BP Pulse Ox 12/01/18 08:07 97.8 F 58 L 16 138/69 99 Weight Weight 170 lb 4.8 oz Result Diagrams: 12/01/18 06:23 12/01/18 06:23 Radiology Reviewed by me: No (Abd USG - Cirrhosis) Phys Exam - Physical Examination Constitutional: NAD Respiratory: no wheezing, no rhonchi Cardiovascular: RRR, no rub Gastrointestinal: soft, non-tender, positive bowel sounds Musculoskeletal: edema present Neurological: moves all 4 limbs Dx/Plan - Plan DVT proph w/SCDs IMPRESSION: GI bleeding s/p EGD/Colon Esophageal Varices s/p banding this admission CLARISSA on CKD 2 Hypokalemia Par Afib - Anticoag on hold - Can resume at Eliquis 2.5 mg BID after [address] Bunn (Follows Dr Ramachandran) Hep C with Cirrhosis with Portal HTN Acute blood loss anemia 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 Dementia Other issues per previous notes PLAN: HH in AM Advance diet Resume Metoprolol/Remeron/Namenda Lasix/Maxzide on hold due to CLARISSA DC IVF Replace Potassium Cont other meds as below Follow up with Dr Ramachandran as outpt for consideration for Watchman device I d/w Dr Ramachandran and Dr Bunn Can dc in AM per GI if stable Review of Systems - Review of Systems Respiratory: negative: Cough, Dry, Shortness of Breath, Hemoptysis, SOB with Excertion, Pleuritic Pain, Sputum, Wheezing Cardiovascular: negative: chest pain, palpitations, orthopnea, paroxysmal nocturnal dyspnea, edema, light headedness, other - Medications/Allergies Allergies/Adverse Reactions: Allergies Allergy/AdvReac Type Severity Reaction Status Date / Time codeine AdvReac Severe Nausea Verified 10/13/18 20:15 Medications: Current Medications Albuterol Sulfate (Ventolin) 2.5 mg NEB [id number] PRN PRN Reason: Wheezing Dronedarone (Multaq) 400 mg PO BID-[facility] Last Admin: 12/01/18 15:31 Dose: 400 mg Memantine (Namenda) 5 mg PO BID [facility] Metoprolol Tartrate (Lopressor) 25 mg PO BID [facility] Mirtazapine (Remeron) 7.5 mg PO HS [facility] Multivitamins (Theragran) 1 tab PO DAILY [facility] Pantoprazole Sodium (Protonix) 40 mg PO DAILY [facility] Last Admin: 12/01/18 09:41 Dose: Not Given Potassium Chloride (Klor-Con 10) 10 meq PO BID-WM [facility] Sodium Chloride (Normal Saline Pf) 10 ml FS PRN PRN PRN Reason: RECONSTITUTION Sodium Chloride (Flush - Normal Saline) 10 ml IVF PRN PRN PRN Reason: Saline Flush Sodium Chloride (Flush - Normal Saline) 10 ml IVF PRN PRN PRN Reason: Saline Flush Tramadol HCl (Ultram) 50 mg PO Q6HR PRN PRN Reason: Pain
[2018-12-01] MEDS: Potassium Chloride 10 MEQ TAB PO SCH (18:08)
[2018-12-01] MEDS: Metoprolol Tartrate 25 MG TAB PO SCH (20:08)
[2018-12-01] MEDS ORDERED: Mirtazapine 15 MG TAB PO SCH (21:00)
[2018-12-02 05:44] LABS: Hemoglobin 8.6 g/dL (12.0-16.0); Platelet Count 100 thou/uL (130-400)
[2018-12-02 06:00] LABS: Anion Gap 6 mmol/L (10-20); BUN (Urea Nitrogen) 16 mg/dL (9.8-20.1); Calc. Creatinine Clearance 66 mL/min (70-130); Calcium 8.4 mg/dL (7.8-10.44); Carbon Dioxide 26 mmol/L (23-31); Chloride 114 mmol/L (98-107); Estimated GFR-MDRD 69; Glucose 76 mg/dL (80-115); Magnesium 1.6 mg/dL (1.6-2.6); Potassium 3.5 mmol/L (3.5-5.1); Sodium 142 mmol/L (136-145)
[2018-12-02 08:11] VITALS: BP 129/64; TEMP 98.3
[2018-12-02] MEDS: Metoprolol Tartrate 25 MG TAB PO SCH (08:28)
[2018-12-02] MEDS: Dronedarone HCl 400 MG TAB PO SCH (08:28)
[2018-12-02] MEDS: Potassium Chloride 10 MEQ TAB PO SCH (08:29)
[2018-12-02] MEDS ORDERED: Multivit, Therapeutic 1 TAB PO SCH (09:00)
--- NOTE | 2018-12-02 12:02 | PRG ---
DATE OF SERVICE: 12/02/2018 SUBJECTIVE: Ms. Cornelius is up walking in the [place]. She is doing well. She has had no bleeding. She denies any pain. She is tolerating a full liquid diet. OBJECTIVE: VITAL SIGNS: Temperature 98, pulse 58, and blood pressure 120/64. ABDOMEN: Soft and nontender. LABORATORY DATA: Hemoglobin is 8.6. Basic metabolic profile normal. AFP was less than 2. Ultrasound showed no hepatic masses. ASSESSMENT: 1. Admitted for rectal bleeding. This seems to be hemorrhoidal. She has had no drop in hemoglobin and had a normal colonoscopy. She had reported that she had been wiping her bottom with some pads, it may be caused her some irritation. 2. History of esophageal varices, banded for prophylaxis in the past. She has not had an endoscopy for 2 years. We had performed that and banded 2 small varices. There was no bleeding from these varices. These were banded for secondary prophylaxis. 3. Cirrhosis of unclear etiology, reported history of hepatitis C, but she has no signs of hepatitis C presently with negative hepatitis C antibody. Her hepatoma screening has been negative. RECOMMENDATIONS: The patient can be discharged home. She can follow up in our office in 6 months for routine hepatoma screening. Otherwise, she can follow up with her primary physician. She has compensated cirrhosis with no signs of bleeding at this time. Job ID: [id number]
--- NOTE | 2018-12-03 02:58 | DIS ---
DATE OF ADMISSION: 11/29/2018 DATE OF DISCHARGE: 12/02/2018 PRIMARY CARE PROVIDER: Dr. Ignacio Bahena. DISCHARGE DIAGNOSES: 1. Rectal bleeding. 2. Esophageal varices, status post banding. 3. History of cirrhosis of unclear etiology. 4. Hypernatremia. 5. Hypokalemia. CONSULTATIONS DURING THIS HOSPITALIZATION: Gastroenterology, Tristin Bunn MD DISCHARGE MEDICATIONS: The patient was advised to resume apixaban after 1 week if there are no episodes of bleeding. Otherwise, no change was made to her pre-admission home medications as dictated by Dr. Epstein in his history and physical note dated November 29, 2018. CONDITION OF PATIENT ON THE DAY OF DISCHARGE: Stable. I assessed Ms. Cornelius on the day of discharge. She denies any chest pain or shortness of breath. Vital signs are stable. S1 and S2 are heard, regular. Lungs are clear to auscultation bilaterally. HOSPITAL COURSE: Ms. Cornelius is a pleasant 68-year-old lady, who was admitted to [facility] on November 29, 2018, for rectal bleeding. She was seen by Gastroenterology Service. She underwent EGD and colonoscopy. Her bleeding was rectal outlet in origin, likely hemorrhoidal. She also underwent esophageal variceal banding x3. Her hemoglobin continued to be stable. She was advised to resume apixaban after 1 week if she does not have any further episodes of bleeding. She also had abdominal ultrasound, suggestive of cirrhosis with mild heterogeneity of the liver. There was no discrete mass. She had normal directional flow within the portal, hepatic and splenic veins. During this hospitalization, she also had alpha fetoprotein checked, which was less than 2.0. She was advised to follow up with Gastroenterology Service for hepatoma screening in approximately 6 months' time. On the day of discharge, she has sodium 142, potassium 3.5, and creatinine 0.97. Hemoglobin 8.6, hematocrit 26.6. Many thanks for allowing me to participate in your patient's care. Please feel free to contact me with any questions or concerns. DISCHARGE DESTINATION: Home. TIME SPENT: Total amount of time spent coordinating this discharge: 32 minutes. Job ID: [id number]
--- NOTE | 2018-12-04 07:32 | HP ---
ADDENDUM: After talking with the patient's daughter about the need for followup evaluation we talked with her other medical issues. We will go ahead and perform that tomorrow while she is here in the hospital, which her daughter preferred as opposed to having to set something up in the outpatient setting. Issue with rectal bleeding and worsening anemia, we will proceed with a colonoscopy as well. Job ID: [id number]
== END 2018-12-02 14:36 | disposition home or self-care (01) | DRG 378 ==
LOC: ERS 13:59 → T4-B 20:25
PROVIDERS: ADMIT Internal Medicine; ATTEND Internal Medicine
PROC: 06L38CZ Occlusion of Esophageal Vein with Extraluminal Device, Via Natural or Artificial Opening Endoscopic (ICD-10-PCS; principal; 2018-11-29)
PROC: 0DJD8ZZ Inspection of Lower Intestinal Tract, Via Natural or Artificial Opening Endoscopic (ICD-10-PCS; 2018-11-29)
DX: K62.5 Hemorrhage of anus and rectum (principal); D61.818 Other pancytopenia; I13.0 Hypertensive heart and chronic kidney disease with heart failure and stage 1 through stage 4 chronic kidney disease, or unspecified chronic kidney disease; N17.9 Acute kidney failure, unspecified; K76.6 Portal hypertension; D62 Acute posthemorrhagic anemia; E87.0 Hyperosmolality and hypernatremia; I85.10 Secondary esophageal varices without bleeding; K64.9 Unspecified hemorrhoids; D63.1 Anemia in chronic kidney disease; I50.9 Heart failure, unspecified; N18.3 Chronic kidney disease, stage 3 (moderate); D86.9 Sarcoidosis, unspecified; E78.5 Hyperlipidemia, unspecified; I27.20 Pulmonary hypertension, unspecified; K74.60 Unspecified cirrhosis of liver; I48.0 Paroxysmal atrial fibrillation; K72.90 Hepatic failure, unspecified without coma; I27.81 Cor pulmonale (chronic); E87.6 Hypokalemia; D69.59 Other secondary thrombocytopenia; F03.90 Unspecified dementia, unspecified severity, without behavioral disturbance, psychotic disturbance, mood disturbance, and anxiety
CPT/HCPCS: 36415; 76705; 80048; 80053; 82105; 82140; 82607; 82746; 83735; 84425; 85014; 85018; 85025; 85049; 85610; 85730; 86850; 86900; 86901; 93005; C9113

== ENCOUNTER 2019-03-16 20:16 | Emergency (ER) | payer MEDICARE, OTHER ==
[2019-03-16] MEDS ORDERED: traMADol HCl 50 MG TAB ONE (21:18)
--- NOTE | 2019-03-16 21:31 | RAD ---
PORTABLE CHEST ONE VIEW: 03/16/19 at 8:42 p.m. HISTORY: Injury, left sided chest pain. FINDINGS/IMPRESSION: Comparison made with exam of 11/14/18. The heart size is normal. The aorta is tortuous. Chronic changes again seen in the lung gonzalez bilate rally. No lobar consolidation, pneumothoraces, or large effusions are seen. There are postop changes in the upper abdomen. POS: H
== END 2019-03-16 21:45 | disposition home or self-care (01) ==
LOC: ERS 20:16
DX: S20.212A Contusion of left front wall of thorax, initial encounter (principal); M81.0 Age-related osteoporosis without current pathological fracture; K21.9 Gastro-esophageal reflux disease without esophagitis; I10 Essential (primary) hypertension; E78.5 Hyperlipidemia, unspecified; Z79.899 Other long term (current) drug therapy; Z79.891 Long term (current) use of opiate analgesic; W20.8XXA Other cause of strike by thrown, projected or falling object, initial encounter
CPT/HCPCS: 71045